=== PATIENT | female | born 1955 | race Caucasian/White ===

== ENCOUNTER → 2018-08-12 14:58 | Outpatient (CLI) | payer BC, SELFPAY ==
--- NOTE | 2018-08-12 15:02 | BI_ITS ---
MAMMOGRAPHY - BILATERAL SCREENING REASON FOR EXAM: Female, 62 years old. Routine annual screening examination. PERTINENT HISTORY: Non-contributory. TECHNIQUE: Digital bilateral breast rita (3D mammographic acquisition) in the CC and MLO projections. 2-D mediolateral oblique (MLO) and craniocaudad (CC) views of both breasts were obtained. CAD: Full Field Digital Mammography with Computer Added Detection was performed. COMPARISON: Comparison is made with prior examination dated May 14, 2017. FINDINGS: Breast Composition: There are scattered areas of fibroglandular density. There are no dominant masses or suspicious calcifications. Since prior study, the patient underwent a biopsy of a tiny nodule in the deep inferior medial portion of the left breast. A tissue clip marker is seen at that site. No other significant abnormalities are identified. There has been no significant change since the prior study. BI/SCREENING MAMM (CAD), BILAT IMPRESSION: Stable bilateral screening mammogram. Yearly follow-up mammogram recommended. (A) ASSESSMENT CATEGORY: BIRADS Category 2: Benign. A letter regarding these results will be sent to the patient by the facility within 30 days. Approximately 10% of breast cancers are not detected by mammography. A normal mammogram should not delay biopsy of a clinically suspicious abnormality. [id number] Electronically Signed: Real Ramesh MD at 16:02 EST Tel [phone], Service support ,
== END ==
PROVIDERS: Family Provider Family Medicine; PCP Family Medicine; Visit Provider Surgery
DX: Z12.31 Encounter for screening mammogram for malignant neoplasm of breast (principal)
CPT/HCPCS: 77063; 77067

== ENCOUNTER → 2020-05-22 13:43 | Outpatient (CLI) | payer MEDICARE, SELFPAY ==
[2018-08-26 13:14] VITALS: BMI 27.6
--- NOTE | 2020-05-22 13:48 | BI_ITS ---
MAMMOGRAPHY - BILATERAL SCREENING 3-D TOMOSYNTHESIS REASON FOR EXAM: Female, 64 years old. Routine screening PERTINENT HISTORY: NO FM HX , LT U/S BX DONE 06-26-17, -- TINY SKIN TAGS BILAT IMF AREA NOT MARKED. TECHNIQUE: 2-D mammograms and 3-D Tomosynthesis of the breast (s) were performed. CAD was performed. COMPARISON: 2018 FINDINGS: The breast composition is composed of scattered fibroglandular density. Scattered benign calcifications are seen. No dense spiculated masses or suspicious microcalcifications are identified. No architectural distortion is identified. There is no skin thickening or retraction. There has been no significant change since the prior study. BI/SCREEN MAMM (CAD) W/AZUL BILAT IMPRESSION: No mammographic signs of malignancy. Routine yearly mammograms recommended. ASSESSMENT CATEGORY: BIRADS Category 2: Benign. A letter regarding these results will be sent to the patient by the facility within 30 days. FOLLOW UP RECOMMENDATION: Yearly follow up mammogram recommended. (A) Approximately 10% of breast cancers are not detected by mammography. A normal mammogram should not delay biopsy of a clinically suspicious abnormality. Electronically Signed: Jose Rafael Stuart MD at 15:20 EDT , Service support ,
== END ==
PROVIDERS: Referring Provider Family Medicine
DX: Z12.31 Encounter for screening mammogram for malignant neoplasm of breast (principal)
CPT/HCPCS: 77063; 77067

== ENCOUNTER 2020-12-12 15:06 | Outpatient (RCR) | payer MEDICARE, SELFPAY ==
[2018-08-26 13:14] VITALS: BMI 27.6
[2020-12-12] MEDS: COVID-19 VACC, MRNA(PFIZER)/PF 30 MCG/0.3 ML SYRINGE IM (13:59)
[2021-01-02] MEDS: COVID-19 VACC, MRNA(PFIZER)/PF 30 MCG/0.3 ML SYRINGE IM (14:11)
== END 2021-03-13 23:59 ==
LOC: IMMUN 15:06
PROVIDERS: PCP Family Medicine; Visit Provider Family Medicine
DX: Z23 Encounter for immunization (principal)
CPT/HCPCS: 0001A; 0002A; 91300

== ENCOUNTER → 2021-07-13 13:22 | Outpatient (CLI) | payer MEDICARE, SELFPAY ==
--- NOTE | 2021-07-13 13:23 | BI_ITS ---
MAMMOGRAPHY - BILATERAL SCREENING 3-D TOMOSYNTHESIS REASON FOR EXAM: Female, 65 years old. SCREENING PERTINENT HISTORY: No significant family history. TECHNIQUE: 2-D mammograms and 3-D Tomosynthesis of the breast (s) were performed. CAD was performed. COMPARISON: 05/22/2020 FINDINGS: The breast composition is heterogeneously dense that can obscure small breast masses. Scattered benign calcifications are seen. No dense spiculated masses or suspicious microcalcifications are identified. No architectural distortion is identified. There is no skin thickening or retraction. There has been no significant change since the prior study. BI/SCRN MAMM (CAD)W/AZUL BILAT IMPRESSION: No mammographic signs of malignancy. Routine yearly mammograms recommended. ASSESSMENT CATEGORY: BIRADS Category 1: Negative. A letter regarding these results will be sent to the patient by the facility within 30 days. FOLLOW UP RECOMMENDATION: Yearly follow up mammogram recommended. (A) Approximately 10% of breast cancers are not detected by mammography. A normal mammogram should not delay biopsy of a clinically suspicious abnormality. Electronically Signed: Jessee Dunlap MD at 15:43 EDT Tel , Service support ,
== END ==
PROVIDERS: PCP Family Medicine; Referring Provider Family Medicine; Visit Provider Family Medicine
DX: Z12.31 Encounter for screening mammogram for malignant neoplasm of breast (principal); R92.8 Other abnormal and inconclusive findings on diagnostic imaging of breast
CPT/HCPCS: 77063; 77067

== ENCOUNTER → 2022-01-25 | Outpatient (CLI) | payer MEDICARE, SELFPAY | END | disposition home or self-care (01) | LOC: LABSPEC 10:22 | PROVIDERS: PCP Family Medicine; Referring Provider Dermatology; Visit Provider Dermatology | DX: B35.1 Tinea unguium (principal); R20.2 Paresthesia of skin; L60.3 Nail dystrophy; L82.0 Inflamed seborrheic keratosis; L53.8 Other specified erythematous conditions; D22.5 Melanocytic nevi of trunk; D18.01 Hemangioma of skin and subcutaneous tissue; L57.8 Other skin changes due to chronic exposure to nonionizing radiation; Z71.89 Other specified counseling | CPT/HCPCS: 87101 ==

== ENCOUNTER → 2022-08-08 | Outpatient (CLI) | payer MEDICARE, SELFPAY ==
--- NOTE | 2022-08-08 14:47 | BI_ITS ---
MAMMOGRAPHY - BILATERAL SCREENING REASON FOR EXAM: Female, 66 years old. Routine annual screening examination. PERTINENT HISTORY: Non-contributory. History of prior left ultrasound-guided breast biopsy. TECHNIQUE: Digital bilateral breast azul (3D mammographic acquisition) in the CC and MLO projections. 2-D mediolateral oblique (MLO) and craniocaudad (CC) views of both breasts were obtained. CAD: Full Field Digital Mammography with Computer Added Detection was performed. COMPARISON: Comparison is made with prior study dated 07/13/2021 and 05/22/2020. FINDINGS: Breast Composition: The breasts are heterogeneously dense, which may obscure small masses. There are no dominant masses or suspicious calcifications. A tissue clip marker is seen in the deep mid medial aspect of the left breast. No other significant abnormalities are identified. There has been no significant change since the prior study. BI/SCRN MAMM (CAD)W/AZUL BILAT IMPRESSION: Stable bilateral screening mammogram. Yearly follow-up mammogram recommended. (A) ASSESSMENT CATEGORY: BIRADS Category 2: Benign. A letter regarding these results will be sent to the patient by the facility within 30 days. Approximately 10% of breast cancers are not detected by mammography. A normal mammogram should not delay biopsy of a clinically suspicious abnormality. [id number] Electronically Signed: Real Ramesh MD at 15:33 EDT ,
== END | disposition home or self-care (01) ==
LOC: OPBI 14:45
PROVIDERS: PCP Family Medicine; Visit Provider Family Medicine
DX: Z12.31 Encounter for screening mammogram for malignant neoplasm of breast (principal)
CPT/HCPCS: 77063; 77067

== ENCOUNTER → 2023-08-11 | Outpatient (CLI) | payer MEDICARE, SELFPAY ==
--- NOTE | 2023-08-11 12:15 | BI_ITS ---
MAMMOGRAPHY - BILATERAL SCREENING REASON FOR EXAM: Female, 67 years old. Routine annual screening examination. PERTINENT HISTORY: Non-contributory. Prior ultrasound-guided left breast biopsy. TECHNIQUE: Digital bilateral breast azul (3D mammographic acquisition) in the CC and MLO projections. 2-D mediolateral oblique (MLO) and craniocaudad (CC) views of both breasts were obtained. CAD: Full Field Digital Mammography with Computer Added Detection was performed. COMPARISON: Comparison is made with prior study dated August 08, 2022 and July 13, 2021. FINDINGS: Breast Composition: The breasts are heterogeneously dense, which may obscure small masses. There are no dominant masses or suspicious calcifications. A tissue clip marker is once again seen in the deep slightly inferior medial aspect of the left breast. No other significant abnormalities are identified. There has been no significant change since the prior study. BI/SCRN MAMM (CAD)W/AZUL BILAT IMPRESSION: Stable bilateral screening mammogram. Yearly follow-up mammogram recommended. (A) ASSESSMENT CATEGORY: BIRADS Category 2: Benign. A letter regarding these results will be sent to the patient by the facility within 30 days. Approximately 10% of breast cancers are not detected by mammography. A normal mammogram should not delay biopsy of a clinically suspicious abnormality. [id number] Electronically Signed: Real Ramesh MD at 13:33 EST ,
== END | disposition home or self-care (01) ==
LOC: OPBI 12:11
PROVIDERS: PCP Family Medicine; Referring Provider Family Medicine; Visit Provider Family Medicine
DX: Z12.31 Encounter for screening mammogram for malignant neoplasm of breast (principal)
CPT/HCPCS: 77063; 77067

== ENCOUNTER → 2023-10-13 | Outpatient (CLI) | payer MEDICARE, SELFPAY ==
--- OUTSIDE RECORDS SUMMARY | 2023-10-13 07:11 | XMS RPT_ITS | CCD ---
Author Name Unknown Address [id number] [place] [address] Organization [facility] Care Team Providers Care Customer Equipment Engineer Name Role Phone Piero MCKEON, Allan Abbott Unavailable [phone] Idalia DO, Jah Javier Primary Care Provid er Idalia DO, [place] Javier Primary Care Provid er Idalia DO, [place] Javier Primary Care Provid er Idalia DO, Jah Javier Primary Care Provid er Idalia DO, [place] Javier Primary Care Provid er IDALIA, JAH JAVIER Attending Unavai lable IDALIA, JAH JAVIER Primary Care Unavai lable IDALIA, DOUDS JAVIER Attending Unavai lable IDALIA, JAH JAVIER Primary Care Unavai lable IDALIA, JAH JAVIER Primary Care Unavai lable IDALIA, JAH JAVIER Attending Unavai lable IDALIA, JAH JAVIER Primary Care Unavai lable IDALIA, JAH JAVIER Referring Unavai lable IDALIA, JAH JAVIER Primary Care Unavai lable IDALIA, JAH JAVIER Referring Unavai lable IDALIA, JAH JAVIER Primary Care Unavai lable IDALIA, JAH JAVIER Referring Unavai lable IDALIA, JAH JAVIER Primary Care Unavai lable IDALIA, JAH JAVIER Referring Unavai lable Allergies Allergy Classification Reported Allergen(s) Allergy Type Date of Onset Reaction(s) Facility (5 sources) azithromycin drug allergy 7 [facility] Work Phone: (5 sources) sulfamethoxazole / trimethoprim drug allergy 7 [facility] Work Phone: (12 sources) Azithromycin; Translations: [AZITHROMYCIN] Drug Allergy 7 [facility] (12 sources) Sulfonamides (Antibiotic); Translations: [SULFA (SULFONAMIDE ANTIBIOTICS)] Drug Allergy 7 [facility] Medications Current Medications Medication Drug Class(es) Dates Sig (Normalized) Sig (Original) amLODIPine 5 mg oral tablet (9 sources) Dihydropyridine Calcium Channel Hermila Start: 07-29-2023 End: 01-25-2024 take 1 tablet by mouth once daily amLODIPine (NORVASC) 5 mg tablet Indications: Essential (primary) hypertension Take 1 tablet by mouth once daily. 90 tablet 1 07/29/2023 01/25/2024 Active Completed/Discontinued Medications Medication Drug Class(es) Dates Sig (Normalized) Sig (Original) ESTRADIOL TABS (5 sources) Estrogen Start: 05-28-2017 VAGIFEM TABS ESTRADIOL TABS [id number] Allan Harry MD Problems Active Problems Problem Classification Problem Date Documented Date Episodic/Chronic Deficiency and other anemia (1 source) Anemia; Translations: [Anemia, unspecified] 08-18-2023 Episodic Deficiency and other anemia (2 sources) Anemia, unspecified; Translations: [Anemia, unspecified type] Onset: 08-18-2023 Episodic Disorders of lipid metabolism (13 sources) Mixed hyperlipidemia; Translations: [Mixed hyperlipidemia] Onset: 09-22-2020 09-22-2020 Chronic Esophageal disorders (15 sources) Gastroesophageal reflux disease; Translations: [Gastroesophageal reflux disease without esophagitis] Onset: 05-28-2017 05-28-2017 Chronic Essential hypertension (20 sources) Hypertensive disorder; Translations: [Essential hypertension] Onset: 05-28-2017 05-28-2017 Chronic Fluid and electrolyte disorders (1 source) Hypokalemia; Translations: [Hypokalemia] Onset: 08-11-2023 Episodic Heart valve disorders (2 sources) Aortic valve stenosis; Translations: [Nonrheumatic aortic (valve) stenosis] Onset: 08-18-2023 08-18-2023 Chronic Heart valve disorders (6 sources) Heart murmur; Translations: [Cardiac murmur, unspecified] Onset: 07-29-2023 07-30-2023 Episodic Nonmalignant breast conditions (9 sources) Fibrocystic disease of breast; Translations: [Diffuse cystic mastopathy of unspecified breast] Onset: 07-07-2017 07-07-2017 Chronic Osteoarthritis (12 sources) Degenerative joint disease involving multiple joints; Translations: [Polyosteoarthritis, unspecified] Onset: 09-22-2020 09-22-2020 Chronic Other nutritional; endocrine; and metabolic disorders (1 source) Overweight in adulthood with body mass index of 25 or more but less than 30; Translations: [Overweight] 08-18-2023 Episodic Other nutritional; endocrine; and metabolic disorders (2 sources) Overweight; Translations: [Overweight with body mass index (BMI) of 27 to 27.9 in adult] Onset: 07-29-2023 Episodic Other nutritional; endocrine; and metabolic disorders (1 source) Body mass index (BMI) 27.0-27.9, adult; Translations: [Overweight with body mass index (BMI) of 27 to 27.9 in adult] Onset: 08-18-2023 Episodic Other nutritional; endocrine; and metabolic disorders (1 source) Body mass index (BMI) 26.0-26.9, adult; Translations: [Overweight with body mass index (BMI) of 26 to 26.9 in adult] Onset: 07-29-2023 Episodic Other screening for suspected conditions (not mental disorders or infectious disease) (17 sources) Patient encounter status; Translations: [Encounter for screening for lipoid disorders] Onset: 09-22-2020 12-11-2021 Episodic Other upper respiratory disease (1 source) Allergic rhinitis due to pollen; Translations: [Seasonal allergic rhinitis due to pollen] Onset: 07-29-2023 Chronic Past or Other Problems Problem Classification Problem Date Documented Da te Episodic/Chronic Deficiency and other anemia (10 sources) Iron deficiency anemia; Translations: [Iron deficiency anemia, unspecified] Onset: 11-25-2006 11-25-2006 Episodic E Codes: Fall (10 sources) Unspecified fall due to ice and snow, initial encounter; Translations: [Fall from other slipping, tripping, or stumbling] Onset: 12-11-2021 12-11-2021 Episodic Gastritis and duodenitis (10 sources) Acute gastritis; Translations: [Acute gastritis without bleeding] Onset: 11-25-2006 11-25-2006 Episodic Hemorrhoids (10 sources) Internal hemorrhoids; Translations: [Other hemorrhoids] Onset: 11-25-2006 11-25-2006 Episodic Immunizations and screening for infectious disease (10 sources) Viral screening status; Translations: [Encounter for screening for other viral diseases] Onset: 12-11-2021 12-11-2021 Episodic Joint disorders and dislocations; trauma-related (10 sources) Subluxation of joint of lower limb; Translations: [Unspecified subluxation of right patella, subsequent encounter] Onset: 06-28-2021 06-28-2021 Episodic Other bone disease and musculoskeletal deformities (10 sources) Senile osteopenia; Translations: [Other specified disorders of bone density and structure, unspecified site] Onset: 09-22-2020 09-22-2020 Episodic Other lower respiratory disease (10 sources) Rib pain; Translations: [Pleurodynia] Onset: 12-11-2021 12-11-2021 Episodic Other screening for suspected conditions (not mental disorders or infectious disease) (5 sources) Mammography abnormal; Translations: [Other abnormal and inconclusive findings on diagnostic imaging of breast] Onset: 05-28-2017 06-05-2017 Episodic Residual codes; unclassified (2 sources) Other specified health status; Translations: [Other drug allergy] Onset: 01-27-2023 Episodic Results Test Name Value Interpretation Reference Range Facil ity Vital Signs Date Time Vital Sign Value Performing Clinician Facility 08-18-2023 15:15-0500 Body height 152.4 cm [place] Idalia [facility] Work Phone: [facility] 08-18-2023 15:15-0500 Body temperature 97.5 [degF] [place] Idalia [facility] Work Phone: [facility] 08-18-2023 15:15-0500 Body weight 63.05 kg [facility] Work Phone: [facility] 08-18-2023 15:15-0500 Diastolic blood pressure 72 mm[Hg] [facility] Work Phone: [facility] 08-18-2023 15:15-0500 Heart rate 73 /min Jah Idalia DO Work Phone: [facility] 08-18-2023 15:15-0500 SaO2% (BldA) [Mass fraction] 100 % [place] Idalia DO Work Phone: [facility] 08-18-2023 15:15-0500 Systolic blood pressure 132 mm[Hg] [place] Idalia DO Work Phone: [facility] 01-27-2023 13:04-0400 Body height 152.4 cm [place] Idalia DO Work Phone: [facility] 01-27-2023 13:04-0400 Body temperature 98.4 [degF] Jah Idalia DO Work Phone: [facility] 01-27-2023 13:04-0400 Body weight 65.32 kg Jah Idalia DO Work Phone: [facility] 01-27-2023 13:04-0400 Diastolic blood pressure 84 mm[Hg] [place] Idalia DO Work Phone: [facility] 01-27-2023 13:04-0400 Heart rate 77 /min Jah Idalia DO Work Phone: [facility] 01-27-2023 13:04-0400 SaO2% (BldA) [Mass fraction] 99 % [place] Idalia DO Work Phone: [facility] 01-27-2023 13:04-0400 Systolic blood pressure 120 mm[Hg] [place] Idalia DO Work Phone: [facility] 07-29-2022 14:03-0400 Diastolic blood pressure 70 mm[Hg] Jah Idalia DO Work Phone: [facility] 07-29-2022 14:03-0400 Systolic blood pressure 130 mm[Hg] Jah Idalia DO Work Phone: [facility] 07-29-2022 13:34-0400 Body height 152.4 cm [place] Idalia DO Work Phone: [facility] 07-29-2022 13:34-0400 Body temperature 97.59 [degF] Jah Chorio DO Work Phone: [facility] 07-29-2022 13:34-0400 Body weight 64.41 kg Jah Chorio DO Work Phone: [facility] 07-29-2022 13:34-0400 Heart rate 93 /min [place] Ch[place] DO Work Phone: [facility] 07-29-2022 13:34-0400 SaO2% (BldA) [Mass fraction] 99 % Jah Chorio DO Work Phone: [facility] 05-28-2017 11:06-0400 BMI (Body Mass Index) 29.09 kg/m2 Allan Harry MD [facility] Work Phone: 05-28-2017 11:06-0400 BP Diastolic 80 mm[Hg] Allan Harry MD [facility] Work Phone: 05-28-2017 11:06-0400 BP Systolic 144 mm[Hg] Allan Harry MD [facility] Work Phone: 05-28-2017 11:06-0400 Height 154.94 cm Allan Harry MD [facility] Work Phone: 05-28-2017 11:06-0400 Pulse (Heart Rate) 62 /min Allan Harry MD [facility] Work Phone: 05-28-2017 11:06-0400 Respiratory Rate 18 /min Allan Harry MD [facility] Work Phone: 05-28-2017 11:06-0400 Weight 69.85 kg Allan Harry MD [facility] Work Phone: Encounters Encounter Date Encounter Type Care Provider Facility Start: 09-08-2023 End: 09-09-2023 ambulatory DOUDS JAVIER IDALIA Facility:[facility] Start: 08-18-2023 End: 08-18-2023 ambulatory [facility] Facility:[facility] Start: 08-18-2023 End: 08-18-2023 Patient encounter procedure Jah Ryan DO Work Phone: [facility] [place] Procedures Date Procedure Procedure Detail Performing Clinician Start: 08-01-2023 Lipid 1996 panel - S sara or Plasma Ag Card Work Phone: Start: 06-25-2021 Colonoscopy Jah Alicea liverio DO Work Phone: Start: 03-07-2021 Adult depression scr eening assessment Jah Ryan DO Work Phone: Start: 05-22-2020 Mammography [place] O liverio DO Work Phone: Plan of Treatment Date Care Activity Detail Author Start: 06-25-2031 Colonoscopy COLONOSCOPY [facility] Start: 06-25-2031 COLORECTAL CANCER SCREENING COLORECTAL CANCER SCREENING [facility] Start: 09-22-2030 Urine microalbumin profile [facility] Start: 08-01-2028 Lipid 1996 panel - Serum or Plasma Lipid Screening [facility] Start: 12-13-2026 LIPID SCREEN LIPID SCREEN [facility] Start: 08-11-2026 Diabetes Screening Diabetes Screening [facility] Start: 08-01-2026 Diabetes Screening Diabetes Screening [facility] Start: 12-13-2024 DIABETES SCREEN DIABETES SCREEN [facility] Start: 08-18-2024 Annual PCP Team Chronic Disease Visit Annual PCP Team Chronic Disease Visit [facility] Start: 07-29-2024 Annual PCP Team Chronic Disease Visit Annual PCP Team Chronic Disease Visit [facility] Start: 01-28-2024 ANNUAL PCP TEAM CHRONIC DISEASE VISIT ANNUAL PCP TEAM CHRONIC DISEASE VISIT [facility] Start: 08-18-2023 End: 11-17-2023 Cobalamin (Vitamin B12) [Mass/volume] in Serum or Plasma VITAMIN B12 BLOOD Lab Routine Anemia, unspecified type Expected: 08/18/2023, Expires: 11/17/2023 [facility] Work Phone: Immunizations Immunization Date Immunization Notes Care Provider Fa [facility] 09-22-2020 pneumococcal polysaccharide vaccine, 23 valent Jah Ryan DO Work Phone: [facility] 09-22-2020 tetanus toxoid, redu juan jose diphtheria toxoid, and acellular pertussis vaccine, adsorbed [facility] DO Work Phone: [facility] 08-31-2018 hepatitis A and hepa titis B vaccine [facility] DO Work Phone: [facility] 02-09-2018 hepatitis A and hepa titis B vaccine [facility] DO Work Phone: [facility] 01-12-2018 hepatitis A and hepa titis B vaccine [facility] DO Work Phone: [facility] Payers Date Payer Category Payer Unknown [id number] 2019 Medicare MMO MEDICARE MMO MEDADVANTAGE O [id number] 2019-Present [phone] [address] [place] [address] [facility] [id number] 2019 Medicare [id number] Social History Date Type Detail Facility Start: 09-15-2020 End: 07-29-2022 Tobacco smoking status NHIS Never smoked tobacco [facility] Start: 12-11-2021 End: 08-18-2023 Alcohol intake Current non-drinker of alcohol (finding) [facility] Start: 1955 Sex Assigned At Not on file [facility] Start: 09-15-2020 End: 07-29-2022 Tobacco use and exposure Smokeless tobacco non-user [facility] Start: 07-19-2022 End: 07-29-2022 Exposure to SARS-CoV-2 (event) Not sure [facility] Start: 01-27-2023 End: 07-29-2023 History of Social function [facility] Start: 01-27-2023 End: 07-29-2023 Tobacco use panel [facility] Adult Depression Scr eening Assessment 0 [facility] Clinical Notes 06-25-2021 to 08-18-2023 Jah Ryan, DO - 08/18/2023 3:19 PM ESTTelephone Encounter - Alana Tavarez - 08/06/2023 4:15 PM EDTTelephone Encounter - Thais Liang LPN - 04/14/2023 1:45 PM EDT Note Date & Type Note Facility 08-18-2023 Note HNO ID: [id number] Author: Jah Ryan DO Service: ? Author Type: Physician Type: Progress Notes Filed: 08/20/2023 7:15 PM Note Text: [facility] [place] Jah Ryan DO [address] [place] [address] Date of Evaluation: 08/18/2023 Patient Name: Carolann Daily : 1955 Chief Complaint: Patient presents with: Wellness: Yearly wellness Results: Had recent blood work. Nursing Intake: There are no exam notes on file for this visit. Subjective Ms. Daily is a 67 year old female who presents with the following complaint(s): The history is provided by the patient. No rf design engineer was used. Hypertension This is a chronic problem. The current episode started more than 1 year ago. The problem is controlled. Pertinent negatives include no chest pain, headaches, palpitations or shortness of breath. Review of Systems Constitutional: Negative for fatigue and unexpected weight change. HENT: Negative for nosebleeds. Eyes: Negative for redness and visual disturbance. Respiratory: Negative for apnea, cough and shortness of breath. Cardiovascular: Negative for chest pain, palpitations and leg swelling. Genitourinary: Negative for hematuria. Neurological: Negative for dizziness, weakness, light-headedness, numbness and headaches. Hematological: Does not bruise/bleed easily. Psychiatric/Behavioral: The patient is not nervous/anxious. PAST MEDICAL HISTORY Diagnosis Date Acute gastritis without mention of hemorrhage Allergic rhinitis due to pollen Aortic valve stenosis Arthritis Dizziness Esophageal reflux Essential (primary) hypertension Fatigue Gastro-esophageal reflux disease with esophagitis Gastroesophageal reflux disease without esophagitis Greater trochanteric pain syndrome Internal hemorrhoids without mention of complication Iron deficiency anemia, unspecified Localized, primary osteoarthritis Low back pain Mixed hyperlipidemia Statin Intolerance Overweight PMH - PAST MEDICAL HISTORY OF tennis elbow PMH - PAST MEDICAL HISTORY OF bp can run low at times PONV (postoperative nausea and vomiting) Postmenopausal atrophic vaginitis Urinary tract infectious disease Vitamin D deficiency PAST SURGICAL HISTORY Procedure Laterality Date CARPAL TUNNEL Bilateral COLONOSCOPY FLX DX W/COLLJ SPEC WHEN PFRMD 11/25/2006 COLONOSCOPY FLX DX W/COLLJ SPEC WHEN PFRMD 06/25/2021 EGD TRANSORAL BIOPSY SINGLE/MULTIPLE 11/25/2006 ESOPHAGOGASTRODUODENOSCOPY TRANSORAL DIAGNOSTIC 10/21/2003 EGD ESOPHAGOGASTRODUODENOSCOPY TRANSORAL DIAGNOSTIC 06/25/2021 PAST SURGICAL HISTORY OF 07/12/1992 partial hysterectomy due to fibroids TONSILLECTOMY PRIMARY/SECONDARY Tonsillectomy VAGINAL HYSTERECTOMY FAMILY HISTORY Problem Relation Age of Onset Diabetes Mother Cancer Father Arthritis Sister Diabetes Maternal Grandfather Social History Tobacco Use Smoking status: Never Smokeless tobacco: Never Vaping Use Vaping Use: Never used Substance Use Topics Alcohol use: No Drug use: Never Current Outpatient Medications Medication Sig amLODIPine (NORVASC) 5 mg tablet Take 1 tablet by mouth once daily. lisinopril (ZESTRIL) 40 mg tablet Take 1 tablet by mouth once daily. omeprazole (PRILOSEC) 40 mg capsule Take 1 capsule by mouth once daily. fluticasone (FLONASE) 50 mcg/actuation nasal spray Use 2 Sprays in each nostril once daily. naproxen (NAPROSYN) 500 mg tablet Take 1 tablet by mouth two times a day with meals. RED YEAST RICE ORAL Take by mouth. MULTIVITAMIN ORAL Take by mouth. ubidecarenone/vitamin E mixed (COQ10 SG 100 ORAL) Take by mouth once daily. lansoprazole (PREVACID) 30 mg capsule Take 1 capsule by mouth once daily. (Patient not taking: Reported on 07/29/2023) No current facility-administered medications for this visit. I have confirmed and edited as necessary the past medical, family and social histories, HPI, and ROS obtained by others. Objective BP 132/72 Pulse 73 Temp 97.5 Ht 5' 0 (1.52m) Wt 139 lb (63.1kg) SpO2 100% BMI 27.15 kg/(m2). Physical Exam Vitals and nursing note reviewed. Constitutional: General: She is not in acute distress. Appearance: Normal appearance. She is well-developed. She is not ill-appearing. HENT: Head: Normocephalic. Right Ear: Tympanic membrane, ear canal and external ear normal. There is no impacted cerumen. Left Ear: Tympanic membrane, ear canal and external ear normal. There is no impacted cerumen. Nose: Nose normal. Mouth/Throat: Mouth: Mucous membranes are moist. Pharynx: Oropharynx is clear. Uvula midline. No oropharyngeal exudate or posterior oropharyngeal erythema. Eyes: General: Lids are normal. Vision grossly intact. Gaze aligned appropriately. No scleral icterus. Right eye: No discharge. Left eye: No discharg (more content not included)... [facility] 08-18-2023 History of Presen t illness Narrative Images from the original note were not included. [facility] [address] [place] [address] Date of Evaluation: 08/18/2023 Patient Name: Carolann Daily : 1955 Chief Complaint: Patient presents with: Wellness: Yearly wellness Results: Had recent blood work. Nursing Intake: There are no exam notes on file for this visit. Subjective Ms. Daliy is a 67 year old female who presents with the following complaint(s): The history is provided by the patient. No rf design engineer was used. Hypertension This is a chronic problem. The current episode started more than 1 year ago. The problem is controlled. Pertinent negatives include no chest pain, headaches, palpitations or shortness of breath. Review of Systems Constitutional: Negative for fatigue and unexpected weight change. HENT: Negative for nosebleeds. Eyes: Negative for redness and visual disturbance. Respiratory: Negative for apnea, cough and shortness of breath. Cardiovascular: Negative for chest pain, palpitations and leg swelling. Genitourinary: Negative for hematuria. Neurological: Negative for dizziness, weakness, light-headedness, numbness and headaches. Hematological: Does not bruise/bleed easily. Psychiatric/Behavioral: The patient is not nervous/anxious. PAST MEDICAL HISTORY Diagnosis Date Acute gastritis without mention of hemorrhage Allergic rhinitis due to pollen Aortic valve stenosis Arthritis Dizziness Esophageal reflux Essential (primary) hypertension Fatigue Gastro-esophageal reflux disease with esophagitis Gastroesophageal reflux disease without esophagitis Greater trochanteric pain syndrome Internal hemorrhoids without mention of complication Iron deficiency anemia, unspecified Localized, primary osteoarthritis Low back pain Mixed hyperlipidemia Statin Intolerance Overweight PMH - PAST MEDICAL HISTORY OF tennis elbow PMH - PAST MEDICAL HISTORY OF bp can run low at times PONV (postoperative nausea and vomiting) Postmenopausal atrophic vaginitis Urinary tract infectious disease Vitamin D deficiency PAST SURGICAL HISTORY Procedure Laterality Date CARPAL TUNNEL Bilateral COLONOSCOPY FLX DX W/COLLJ SPEC WHEN PFRMD 11/25/2006 COLONOSCOPY FLX DX W/COLLJ SPEC WHEN PFRMD 06/25/2021 EGD TRANSORAL BIOPSY SINGLE/MULTIPLE 11/25/2006 ESOPHAGOGASTRODUODENOSCOPY TRANSORAL DIAGNOSTIC 10/21/2003 EGD ESOPHAGOGASTRODUODENOSCOPY TRANSORAL DIAGNOSTIC 06/25/2021 PAST SURGICAL HISTORY OF 07/12/1992 partial hysterectomy due to fibroids TONSILLECTOMY PRIMARY/SECONDARY <AGE 12 01/01/1979 Tonsillectomy VAGINAL HYSTERECTOMY FAMILY HISTORY Problem Relation Age of Onset Diabetes Mother Cancer Father Arthritis Sister Diabetes Maternal Grandfather Social History Tobacco Use Smoking status: Never Smokeless tobacco: Never Vaping Use Vaping Use: Never used Substance Use Topics Alcohol use: No Drug use: Never Current Outpatient Medications Medication Sig amLODIPine (NORVASC) 5 mg tablet Take 1 tablet by mouth once daily. lisinopril (ZESTRIL) 40 mg tablet Take 1 tablet by mouth once daily. omeprazole (PRILOSEC) 40 mg capsule Take 1 capsule by mouth once daily. fluticasone (FLONASE) 50 mcg/actuation nasal spray Use 2 Sprays in each nostril once daily. naproxen (NAPROSYN) 500 mg tablet Take 1 tablet by mouth two times a day with meals. RED YEAST RICE ORAL Take by mouth. MULTIVITAMIN ORAL Take by mouth. ubidecarenone/vitamin E mixed (COQ10 SG 100 ORAL) Take by mouth once daily. lansoprazole (PREVACID) 30 mg capsule Take 1 capsule by mouth once daily. (Patient not taking: Reported on 07/29/2023) No current facility-administered medications for this visit. I have confirmed and edited as necessary the past medical, family and social histories, HPI, and ROS obtained by others. Objective BP 132/72 Pulse 73 Temp 97.5 Ht 5' 0 (1.52m) Wt 139 lb (63.1kg) SpO2 100% BMI 27.15 kg/(m^2). Physical Exam Vitals and nursing note reviewed. Constitutional: General: She is not in acute distress. Appearance: Normal appearance. She is well-developed. She is not ill-appearing. HENT: Head: Normocephalic. Right Ear: Tympanic membrane, ear canal and external ear normal. There is no impacted cerumen. Left Ear: Tympanic membrane, ear canal and external ear normal. There is no impacted cerumen. Nose: Nose normal. Mouth/Throat: Mouth: Mucous membranes are moist. Pharynx: Oropharynx is clear. Uvula midline. No oropharyngeal exudate or posterior oropharyngeal erythema. Eyes: General: Lids are normal. Vision grossly intact. Gaze aligned appropriately. No scleral icterus. Right eye: No discharge. Left eye: No discharge. Extraocular Movements: Extraocular movements intact. Conjunctiva/sclera: Conjunctivae normal. Pupils: Pupils are equal, round, and reactive to light. Neck: Thyroid: No thyroid mass, thyromegaly or thyroid tenderness. Vascular: No carotid bruit. Trachea: Trachea and phonation normal. Cardiovascular: Rate and Rhythm: Normal rate and regular rhythm. Pulses: Normal pulses. Heart sounds: Murmur heard. Pulmonary: Effort: Pulmonary effort is normal. Breath sounds: Normal breath sounds. Abdominal: General: Abdomen is flat. Bowel sounds are normal. Palpations: Abdomen is soft. Musculoskeletal: General: Normal range of motion. Right shoulder: Normal. Left shoulder: Normal. Cervical back: Normal, full passive range of motion without pain and neck supple. No tenderness. No spinous process tenderness. Thoracic back: Normal. Lumbar back: Normal. Right knee: Normal. Left knee: Normal. Right lower leg: No edema. Left lower leg: No edema. Lymphadenopathy: Cervical: No cervical adenopathy. Skin: General: Skin is warm and dry. Neurological: General: No focal deficit present. Mental Status: She is alert and oriented to person, place, and time. Mental status is at baseline. Sensory: Sensation is intact. Motor: Motor function is intact. Psychiatric: Attention and Perception: Attention and perception normal. Mood and Affect: Mood normal. Speech: Speech normal. Behavior: Behavior normal. Thought Content: Thought content normal. Judgment: Judgment normal. Data Reviewed: Most recent labs and imaging results. ASSESSMENT/PLAN: 1. Essential (primary) hypertension - ICD9: 401.9, ICD10: I10 (primary diagnosis) - Controlled - Continue current medications - Recommend home blood pressure monitoring, to bring results to next visit - Encouraged sodium restriction, DASH or Mediterranean diet - Recommend regular aerobic exercise 2. Anemia, unspecified type - ICD9: 285.9, ICD10: D64.9 - Check B12 level. - VITAMIN B12 BLOOD 3. Aortic valve stenosis, etiology of cardiac valve disease unspecified - ICD9: 424.1, ICD10: I35.0 - Reviewed recent echo, upcoming appointment with cardiology. 4. Overweight with body mass index (BMI) of 27 to 27.9 in adult - ICD9: 278.02, V85.23, ICD10: E66.3, Z68.27 5. Heart murmur - ICD9: 785.2, ICD10: R01.1 Return in about 6 months (around 02/16/2024). Jah Ryan DO Attestation: Scribe Statement: I Danyelle Pepe am scribing for, and in the presence of, Physician Statement: I, Jah Ryan DO, personally performed the services described in the documentation, as scribed by Danyelle Pepe in my presence, and it is both accurate and complete August 18, 2023 3:51 PM. Jah Ryan DO August 18, 2023 3:45 PM. documented in this encounter [facility] 08-06-2023 Miscellaneous Notes Formattin g of this note might be different from the original. LVM for pt reg her referral that we have receive form PCP Dr. Ryan reg. Aortic stenosis, moderate. Pt has been scheduled with Dr. Lyles on 08/22/23 at [facility] for 8:20a. Office number [phone] option 5 was left in case pt has any questions. Alana Tavarez August 06, 2023 4:16 PM documented in this encounter [facility] 07-29-2023 Note HNO ID: [id number] Author: Jah Ryan DO Service: ? Author Type: Physician Type: Progress Notes Filed: 07/30/2023 9:41 PM Note Text: [facility] [place] Jah Ryan DO [address] [place] [address] Date of Evaluation: 07/29/2023 Patient Name: Carolann Daily : 1955 Chief Complaint: Patient presents with: 6 Month Exam Hypertension Heartburn Nursing Intake: There are no exam notes on file for this visit. Subjective Ms. Daily is a 67 year old female who presents with the following complaint(s): The history is provided by the patient. No rf design engineer was used. Hypertension This is a chronic problem. The current episode started more than 1 year ago. Pertinent negatives include no chest pain or headaches. GERD She complains of heartburn. She reports no chest pain. This is a chronic problem. The current episode started more than 1 year ago. Pertinent negatives include no fatigue. Allergies This is a chronic problem. Pertinent negatives include no chest pain, fatigue, headaches or numbness. Review of Systems Constitutional: Negative for fatigue and unexpected weight change. Respiratory: Negative for apnea. Cardiovascular: Negative for chest pain and leg swelling. Gastrointestinal: Positive for heartburn. Genitourinary: Negative for hematuria. Neurological: Negative for light-headedness, numbness and headaches. Psychiatric/Behavioral: The patient is not nervous/anxious. PAST MEDICAL HISTORY Diagnosis Date Acute gastritis without mention of hemorrhage Allergic rhinitis due to pollen Arthritis Dizziness Esophageal reflux Essential (primary) hypertension Fatigue Gastro-esophageal reflux disease with esophagitis Gastroesophageal reflux disease without esophagitis Greater trochanteric pain syndrome Internal hemorrhoids without mention of complication Iron deficiency anemia, unspecified Localized, primary osteoarthritis Low back pain Mixed hyperlipidemia Statin Intolerance Overweight PMH - PAST MEDICAL HISTORY OF tennis elbow PMH - PAST MEDICAL HISTORY OF bp can run low at times PONV (postoperative nausea and vomiting) Postmenopausal atrophic vaginitis Urinary tract infectious disease Vitamin D deficiency PAST SURGICAL HISTORY Procedure Laterality Date CARPAL TUNNEL Bilateral COLONOSCOPY FLX DX W/COLLJ SPEC WHEN PFRMD 11/25/2006 COLONOSCOPY FLX DX W/COLLJ SPEC WHEN PFRMD 06/25/2021 EGD TRANSORAL BIOPSY SINGLE/MULTIPLE 11/25/2006 ESOPHAGOGASTRODUODENOSCOPY TRANSORAL DIAGNOSTIC 10/21/2003 EGD ESOPHAGOGASTRODUODENOSCOPY TRANSORAL DIAGNOSTIC 06/25/2021 PAST SURGICAL HISTORY OF 07/12/1992 partial hysterectomy due to fibroids TONSILLECTOMY PRIMARY/SECONDARY Tonsillectomy VAGINAL HYSTERECTOMY FAMILY HISTORY Problem Relation Age of Onset Diabetes Mother Cancer Father Arthritis Sister Diabetes Maternal Grandfather Social History Tobacco Use Smoking status: Never Smokeless tobacco: Never Vaping Use Vaping Use: Never used Substance Use Topics Alcohol use: No Drug use: Never Current Outpatient Medications Medication Sig RED YEAST RICE ORAL Take by mouth. MULTIVITAMIN ORAL Take by mouth. ubidecarenone/vitamin E mixed (COQ10 SG 100 ORAL) Take by mouth once daily. amLODIPine (NORVASC) 5 mg tablet Take 1 tablet by mouth once daily. lisinopril (ZESTRIL) 40 mg tablet Take 1 tablet by mouth once daily. omeprazole (PRILOSEC) 40 mg capsule Take 1 capsule by mouth once daily. fluticasone (FLONASE) 50 mcg/actuation nasal spray Use 2 Sprays in each nostril once daily. naproxen (NAPROSYN) 500 mg tablet Take 1 tablet by mouth two times a day with meals. lansoprazole (PREVACID) 30 mg capsule Take 1 capsule by mouth once daily. (Patient not taking: Reported on 07/29/2023) No current facility-administered medications for this visit. I have confirmed and edited as necessary the past medical, family and social histories, HPI, and ROS obtained by others. Objective BP 132/68 Pulse 88 Temp 98.1 Ht 5' 0 (1.52m) Wt 138 lb (62.6kg) SpO2 98% BMI 26.95 kg/(m2). Physical Exam Vitals and nursing note reviewed. Constitutional: General: She is not in acute distress. Appearance: Normal appearance. She is well-developed. She is not ill-appearing. HENT: Head: Normocephalic. Right Ear: Tympanic membrane, ear canal and external ear normal. There is no impacted cerumen. Left Ear: Tympanic membrane, ear canal and external ear normal. There is no impacted cerumen. Nose: Nose normal. Mouth/Throat: Mouth: Mucous membranes are moist. Pharynx: Oropharynx is clear. Uvula midline. No oropharyngeal exudate or posterior oropharyngeal erythema. Eyes: General: Lids are normal. Vision grossly intact. Gaze aligned appropriately. No scleral icterus. Right eye: (more content not included)... [facility] 04-14-2023 Miscellaneous Notes Formattin g of this note is different from the original. Pharmacy faxed requesting the following refill Refill(s) Requested: Requested Prescriptions Pending Prescriptions Disp Refills amLODIPine (NORVASC) 5 mg tablet [Pharmacy Med Name: amLODIPine Besylate 5 MG Oral Tablet] 90 tablet 0 Sig: Take 1 tablet by mouth once daily ALLERGIES Allergen Reactions Azithromycin Rash inflames mouth Other reaction(s): [facility] Sulfa (Sulfonamide * Rash inflames mouth Other reaction(s): [facility] (home) [phone] (cell) Last Office Visit Date: 01/27/2023 Last Distance Health Visit: Visit date not found Future Appointment: 07/29/2023 The patients preferred pharmacy has been captured for this encounter? yes Request is for script(s) to be escript to pharmacy. Thais Liang LPN documented in this encounter [facility] 01-28-2023 Miscellaneous Notes Formattin g of this note is different from the original. Pharmacy faxed requesting the following refill Refill(s) Requested: Requested Prescriptions Pending Prescriptions Disp Refills amLODIPine (NORVASC) 5 mg tablet [Pharmacy Med Name: amLODIPine Besylate 5 MG Oral Tablet] 90 tablet 0 Sig: Take 1 tablet by mouth once daily ALLERGIES Allergen Reactions Azithromycin Rash inflames mouth Other reaction(s): [facility] Sulfa (Sulfonamide * Rash inflames mouth Other reaction(s): [facility] (home) [phone] (cell) Last Office Visit Date: 01/27/2023 Last Distance Health Visit: Visit date not found Future Appointment: 07/29/2023 The patients preferred pharmacy has been captured for this encounter? yes Request is for script(s) to be escript to pharmacy. Thais Liang LPN documented in this encounter [facility] 01-27-2023 Note HNO ID: [id number] Author: Jah Ryan DO Service: ? Author Type: Physician Type: Progress Notes Filed: 02/05/2023 6:45 PM Note Text: [facility] [place] DO [address] [place] [address] Date of Evaluation: 01/27/2023 Patient Name: Carolann Daily : 1955 Chief Complaint: Patient presents with: Hypertension 6 Month Exam Heartburn Nursing Intake: There are no exam notes on file for this visit. Subjective Ms. Daily is a 67 year old female who presents with the following complaint(s): The history is provided by the patient. No rf design engineer was used. Hypertension This is a chronic problem. The current episode started more than 1 year ago. Pertinent negatives include no chest pain, headaches, palpitations or shortness of breath. Hypercholesterolemia This is a chronic problem. The current episode started more than 1 year ago. Pertinent negatives include no chest pain or shortness of breath. Musculoskeletal Problem This is a chronic problem. Associated symptoms include arthralgias. Pertinent negatives include no chest pain, coughing, fatigue, headaches, numbness or weakness. GERD She complains of heartburn. She reports no chest pain or no coughing. This is a chronic problem. The problem has been gradually worsening. Pertinent negatives include no fatigue. Review of Systems Constitutional: Negative for fatigue and unexpected weight change. HENT: Negative for nosebleeds. Eyes: Negative for redness and visual disturbance. Respiratory: Negative for apnea, cough and shortness of breath. Cardiovascular: Negative for chest pain, palpitations and leg swelling. Gastrointestinal: Positive for heartburn. Genitourinary: Negative for hematuria. Musculoskeletal: Positive for arthralgias. Neurological: Negative for dizziness, weakness, light-headedness, numbness and headaches. Hematological: Does not bruise/bleed easily. Psychiatric/Behavioral: The patient is not nervous/anxious. PAST MEDICAL HISTORY Diagnosis Date Acute gastritis without mention of hemorrhage Allergic rhinitis due to pollen Arthritis Dizziness Esophageal reflux Essential (primary) hypertension Fatigue Gastro-esophageal reflux disease with esophagitis Gastroesophageal reflux disease without esophagitis Greater trochanteric pain syndrome Internal hemorrhoids without mention of complication Iron deficiency anemia, unspecified Localized, primary osteoarthritis Low back pain Mixed hyperlipidemia Statin Intolerance Overweight PMH - PAST MEDICAL HISTORY OF tennis elbow PMH - PAST MEDICAL HISTORY OF bp can run low at times PONV (postoperative nausea and vomiting) Postmenopausal atrophic vaginitis Urinary tract infectious disease Vitamin D deficiency PAST SURGICAL HISTORY Procedure Laterality Date CARPAL TUNNEL Bilateral COLONOSCOPY FLX DX W/COLLJ SPEC WHEN PFRMD 11/25/2006 COLONOSCOPY FLX DX W/COLLJ SPEC WHEN PFRMD 06/25/2021 EGD TRANSORAL BIOPSY SINGLE/MULTIPLE 11/25/2006 ESOPHAGOGASTRODUODENOSCOPY TRANSORAL DIAGNOSTIC 10/21/2003 EGD ESOPHAGOGASTRODUODENOSCOPY TRANSORAL DIAGNOSTIC 06/25/2021 PAST SURGICAL HISTORY OF 07/12/1992 partial hysterectomy due to fibroids TONSILLECTOMY PRIMARY/SECONDARY Tonsillectomy VAGINAL HYSTERECTOMY FAMILY HISTORY Problem Relation Age of Onset Diabetes Mother Cancer Father Arthritis Sister Diabetes Maternal Grandfather Social History Tobacco Use Smoking status: Never Smokeless tobacco: Never Vaping Use Vaping Use: Never used Substance Use Topics Alcohol use: No Drug use: Never Current Outpatient Medications Medication Sig Dispense Refill RED YEAST RICE ORAL Take by mouth. MULTIVITAMIN ORAL Take by mouth. lisinopril (ZESTRIL, PRINIVIL) 40 mg tablet Take 1 tablet by mouth once daily. 90 tablet 3 omeprazole (PRILOSEC) 40 mg capsule Take 1 capsule by mouth once daily. 90 capsule 3 fluticasone (FLONASE) 50 mcg/actuation nasal spray Use 2 Sprays in each nostril once daily. 1 Each 11 amLODIPine (NORVASC) 5 mg tablet Take 1 tablet by mouth once daily. 30 tablet 5 ubidecarenone/vitamin E mixed (COQ10 SG 100 ORAL) Take by mouth once daily. naproxen (NAPROSYN) 500 mg tablet Take 1 tablet by mouth twice daily with meals. 60 tablet 11 lansoprazole (PREVACID) 30 mg capsule Take 1 capsule by mouth once daily. 90 capsule 3 No current facility-administered medications for this visit. I have confirmed and edited as necessary the past medical, family and social histories, HPI, and ROS obtained by others. Objective BP 120/84 Pulse 77 Temp 98.4 Ht 5' 0 (1.52m) Wt 144 lb (65.3kg) SpO2 99% BMI 28.12 kg/(m2). Physical Exam Vitals and nursing note reviewed. Constitutional: General: She is not in acute distress. Appearance: Normal appearanc (more content not included)... [facility] 01-27-2023 History of Presen t illness Narrative Images from the original note were not included. [facility] [place] DO [place] [address] [place] [address] Date of Evaluation: 01/27/2023 Patient Name: Carolann Daily : 1955 Chief Complaint: Patient presents with: Hypertension 6 Month Exam Heartburn Nursing Intake: There are no exam notes on file for this visit. Subjective Ms. Daily is a 67 year old female who presents with the following complaint(s): The history is provided by the patient. No rf design engineer was used. Hypertension This is a chronic problem. The current episode started more than 1 year ago. Pertinent negatives include no chest pain, headaches, palpitations or shortness of breath. Hypercholesterolemia This is a chronic problem. The current episode started more than 1 year ago. Pertinent negatives include no chest pain or shortness of breath. Musculoskeletal Problem This is a chronic problem. Associated symptoms include arthralgias. Pertinent negatives include no chest pain, coughing, fatigue, headaches, numbness or weakness. GERD She complains of heartburn. She reports no chest pain or no coughing. This is a chronic problem. The problem has been gradually worsening. Pertinent negatives include no fatigue. Review of Systems Constitutional: Negative for fatigue and unexpected weight change. HENT: Negative for nosebleeds. Eyes: Negative for redness and visual disturbance. Respiratory: Negative for apnea, cough and shortness of breath. Cardiovascular: Negative for chest pain, palpitations and leg swelling. Gastrointestinal: Positive for heartburn. Genitourinary: Negative for hematuria. Musculoskeletal: Positive for arthralgias. Neurological: Negative for dizziness, weakness, light-headedness, numbness and headaches. Hematological: Does not bruise/bleed easily. Psychiatric/Behavioral: The patient is not nervous/anxious. PAST MEDICAL HISTORY Diagnosis Date Acute gastritis without mention of hemorrhage Allergic rhinitis due to pollen Arthritis Dizziness Esophageal reflux Essential (primary) hypertension Fatigue Gastro-esophageal reflux disease with esophagitis Gastroesophageal reflux disease without esophagitis Greater trochanteric pain syndrome Internal hemorrhoids without mention of complication Iron deficiency anemia, unspecified Localized, primary osteoarthritis Low back pain Mixed hyperlipidemia Statin Intolerance Overweight PMH - PAST MEDICAL HISTORY OF tennis elbow PMH - PAST MEDICAL HISTORY OF bp can run low at times PONV (postoperative nausea and vomiting) Postmenopausal atrophic vaginitis Urinary tract infectious disease Vitamin D deficiency PAST SURGICAL HISTORY Procedure Laterality Date CARPAL TUNNEL Bilateral COLONOSCOPY FLX DX W/COLLJ SPEC WHEN PFRMD 11/25/2006 COLONOSCOPY FLX DX W/COLLJ SPEC WHEN PFRMD 06/25/2021 EGD TRANSORAL BIOPSY SINGLE/MULTIPLE 11/25/2006 ESOPHAGOGASTRODUODENOSCOPY TRANSORAL DIAGNOSTIC 10/21/2003 EGD ESOPHAGOGASTRODUODENOSCOPY TRANSORAL DIAGNOSTIC 06/25/2021 PAST SURGICAL HISTORY OF 07/12/1992 partial hysterectomy due to fibroids TONSILLECTOMY PRIMARY/SECONDARY <AGE 12 01/01/1979 Tonsillectomy VAGINAL HYSTERECTOMY FAMILY HISTORY Problem Relation Age of Onset Diabetes Mother Cancer Father Arthritis Sister Diabetes Maternal Grandfather Social History Tobacco Use Smoking status: Never Smokeless tobacco: Never Vaping Use Vaping Use: Never used Substance Use Topics Alcohol use: No Drug use: Never Current Outpatient Medications Medication Sig Dispense Refill RED YEAST RICE ORAL Take by mouth. MULTIVITAMIN ORAL Take by mouth. lisinopril (ZESTRIL, PRINIVIL) 40 mg tablet Take 1 tablet by mouth once daily. 90 tablet 3 omeprazole (PRILOSEC) 40 mg capsule Take 1 capsule by mouth once daily. 90 capsule 3 fluticasone (FLONASE) 50 mcg/actuation nasal spray Use 2 Sprays in each nostril once daily. 1 Each 11 amLODIPine (NORVASC) 5 mg tablet Take 1 tablet by mouth once daily. 30 tablet 5 ubidecarenone/vitamin E mixed (COQ10 SG 100 ORAL) Take by mouth once daily. naproxen (NAPROSYN) 500 mg tablet Take 1 tablet by mouth twice daily with meals. 60 tablet 11 lansoprazole (PREVACID) 30 mg capsule Take 1 capsule by mouth once daily. 90 capsule 3 No current facility-administered medications for this visit. I have confirmed and edited as necessary the past medical, family and social histories, HPI, and ROS obtained by others. Objective BP 120/84 Pulse 77 Temp 98.4 Ht 5' 0 (1.52m) Wt 144 lb (65.3kg) SpO2 99% BMI 28.12 kg/(m^2). Physical Exam Vitals and nursing note reviewed. Constitutional: General: She is not in acute distress. Appearance: Normal appearance. She is well-developed. She is not ill-appearing. HENT: Head: Normocephalic. Right Ear: Tympanic membrane, ear canal and external ear normal. There is no impacted cerumen. Left Ear: Tympanic membrane, ear canal and external ear normal. There is no impacted cerumen. Nose: Nose normal. Mouth/Throat: Mouth: Mucous membranes are moist. Pharynx: Oropharynx is clear. Uvula midline. No oropharyngeal exudate or posterior oropharyngeal erythema. Eyes: General: Lids are normal. Vision grossly intact. Gaze aligned appropriately. No scleral icterus. Right eye: No discharge. Left eye: No discharge. Extraocular Movements: Extraocular movements intact. Conjunctiva/sclera: Conjunctivae normal. Pupils: Pupils are equal, round, and reactive to light. Neck: Thyroid: No thyroid mass, thyromegaly or thyroid tenderness. Vascular: No carotid bruit. Trachea: Trachea and phonation normal. Cardiovascular: Rate and Rhythm: Normal rate and regular rhythm. Pulses: Normal pulses. Heart sounds: Normal heart sounds. Pulmonary: Effort: Pulmonary effort is normal. Breath sounds: Normal breath sounds. Abdominal: General: Abdomen is flat. Bowel sounds are normal. Palpations: Abdomen is soft. Musculoskeletal: General: Normal range of motion. Right shoulder: Normal. Left shoulder: Normal. Cervical back: Normal, full passive range of motion without pain and neck supple. No tenderness. No spinous process tenderness. Thoracic back: Normal. Lumbar back: Normal. Right knee: Normal. Left knee: Normal. Right lower leg: No edema. Left lower leg: No edema. Lymphadenopathy: Cervical: No cervical adenopathy. Skin: General: Skin is warm and dry. Neurological: General: No focal deficit present. Mental Status: She is alert and oriented to person, place, and time. Mental status is at baseline. Sensory: Sensation is intact. Motor: Motor function is intact. Psychiatric: Attention and Perception: Attention and perception normal. Mood and Affect: Mood normal. Speech: Speech normal. Behavior: Behavior normal. Thought Content: Thought content normal. Judgment: Judgment normal. Data Reviewed: No new labs ASSESSMENT/PLAN: 1. Hypertension, essential - ICD9: 401.9, ICD10: I10 (primary diagnosis) - good control - Continue current medication(s) - Recommended regular aerobic exercise. - Recommend home blood pressure monitoring, to bring results in on next visit - Goal of BP <130/80 2. Mixed hyperlipidemia - ICD9: 272.2, ICD10: E78.2 - to be determined upon return of lab results - Encouraged following a low fat, low cholesterol diet. - CBC + DIFF - COMP METABOLIC PANEL - LIPID PANEL BASIC - URINALYSIS, WITH MICROSCOPIC 3. Primary osteoarthritis involving multiple joints - ICD9: 715.98, ICD10: M15.9 - Continue current medication - NAPROXEN 500 MG TABLET 4. GERD without esophagitis - ICD9: 530.81, ICD10: K21.9 - Discontinue Omeprazole - Start Lansoprazole - LANSOPRAZOLE 30 MG CAPSULE,DELAYED RELEASE 5. Statin intolerance - ICD9: 995.27, ICD10: Z78.9 6. Screening for thyroid disorder - ICD9: V77.0, ICD10: Z13.29 - TSH BLD Jah Ryan DO Return in about 6 months (around 07/29/2023) for medication follow up. Attestation: Scribe Statement: Jose Pepe am scribing for, and in the presence of, Jah Ryan DO January 27, 2023 1:29 PM. Physician Statement: I, Jah Ryan DO, personally performed the services described in the documentation, as scribed by Danyelle Pepe in my presence, and it is both accurate and complete January 27, 2023 1:33 PM. documented in this encounter [facility] 08-06-2022 Miscellaneous Notes Formattin g of this note might be different from the original. Faxed order through [employer] to number below Pended Diana from [facility] mammography department called and left a voicemail saying patient is scheduled for tomorrow and they need a new order that says 3D or with azul on it Wants order faxed to [phone] documented in this encounter [facility] 07-29-2022 History of Presen t illness Narrative Images from the original note were not included. [facility] [address] [place] [address] Date of Evaluation: 07/29/2022 Patient Name: Carolann Daily : 1955 Chief Complaint: Patient presents with: Hypertension: 2 week recheck. Discuss times of blood pressure medications. Nursing Intake: There are no exam notes on file for this visit. Subjective Ms. Daily is a 66 year old female who presents with the following complaint(s): The history is provided by the patient. No rf design engineer was used. Hypertension This is a chronic problem. The current episode started more than 1 year ago. The problem has been rapidly improving (amlodipine added at [facility]) since onset. Pertinent negatives include no chest pain, headaches, palpitations or shortness of breath. Hypercholesterolemia This is a chronic problem. The current episode started more than 1 year ago. Pertinent negatives include no chest pain or shortness of breath. Review of Systems Constitutional: Negative for fatigue and unexpected weight change. HENT: Negative for nosebleeds. Eyes: Negative for redness and visual disturbance. Respiratory: Negative for apnea, cough and shortness of breath. Cardiovascular: Negative for chest pain, palpitations and leg swelling. Genitourinary: Negative for hematuria. Neurological: Negative for dizziness, weakness, light-headedness, numbness and headaches. Hematological: Does not bruise/bleed easily. Psychiatric/Behavioral: The patient is not nervous/anxious. PAST MEDICAL HISTORY Diagnosis Date Acute gastritis without mention of hemorrhage Allergic rhinitis due to pollen Arthritis Dizziness Esophageal reflux Essential (primary) hypertension Fatigue Gastro-esophageal reflux disease with esophagitis Gastroesophageal reflux disease without esophagitis Greater trochanteric pain syndrome Internal hemorrhoids without mention of complication Iron deficiency anemia, unspecified Localized, primary osteoarthritis Low back pain Mixed hyperlipidemia Statin Intolerance Overweight PMH - PAST MEDICAL HISTORY OF tennis elbow PMH - PAST MEDICAL HISTORY OF bp can run low at times PONV (postoperative nausea and vomiting) Postmenopausal atrophic vaginitis Urinary tract infectious disease Vitamin D deficiency PAST SURGICAL HISTORY Procedure Laterality Date CARPAL TUNNEL Bilateral COLONOSCOPY FLX DX W/COLLJ SPEC WHEN PFRMD 11/25/2006 COLONOSCOPY FLX DX W/COLLJ SPEC WHEN PFRMD 06/25/2021 EGD TRANSORAL BIOPSY SINGLE/MULTIPLE 11/25/2006 ESOPHAGOGASTRODUODENOSCOPY TRANSORAL DIAGNOSTIC 10/21/2003 EGD ESOPHAGOGASTRODUODENOSCOPY TRANSORAL DIAGNOSTIC 06/25/2021 PAST SURGICAL HISTORY OF 07/12/1992 partial hysterectomy due to fibroids TONSILLECTOMY PRIMARY/SECONDARY <AGE 10 01/01/1979 Tonsillectomy VAGINAL HYSTERECTOMY FAMILY HISTORY Problem Relation Age of Onset Diabetes Mother Cancer Father Arthritis Sister Diabetes Maternal Grandfather Social History Tobacco Use Smoking status: Never Smokeless tobacco: Never Vaping Use Vaping Use: Never used Substance Use Topics Alcohol use: No Drug use: Never Current Outpatient Medications Medication Sig Dispense Refill RED YEAST RICE ORAL Take by mouth. MULTIVITAMIN ORAL Take by mouth. lisinopril (ZESTRIL, PRINIVIL) 40 mg tablet Take 1 tablet by mouth once daily. 90 tablet 3 omeprazole (PRILOSEC) 40 mg capsule Take 1 capsule by mouth once daily. 90 capsule 3 fluticasone (FLONASE) 50 mcg/actuation nasal spray Use 2 Sprays in each nostril once daily. 1 Each 11 amLODIPine (NORVASC) 5 mg tablet Take 1 tablet by mouth once daily. 30 tablet 5 ubidecarenone/vitamin E mixed (COQ10 SG 100 ORAL) Take by mouth once daily. No current facility-administered medications for this visit. I have confirmed and edited as necessary the past medical, family and social histories, HPI, and ROS obtained by others. Objective BP 130/70 Pulse 93 Temp 97.6 Ht 5' 0 (1.52m) Wt 142 lb (64.4kg) SpO2 99% BMI 27.73 kg/(m^2). Physical Exam Vitals and nursing note reviewed. Constitutional: General: She is not in acute distress. Appearance: Normal appearance. She is well-developed. She is not ill-appearing. HENT: Head: Normocephalic. Right Ear: Tympanic membrane, ear canal and external ear normal. There is no impacted cerumen. Left Ear: Tympanic membrane, ear canal and external ear normal. There is no impacted cerumen. Nose: Nose normal. Mouth/Throat: Mouth: Mucous membranes are moist. Pharynx: Oropharynx is clear. Uvula midline. No oropharyngeal exudate or posterior oropharyngeal erythema. Eyes: General: Lids are normal. Vision grossly intact. Gaze aligned appropriately. No scleral icterus. Right eye: No discharge. Left eye: No discharge. Extraocular Movements: Extraocular movements intact. Conjunctiva/sclera: Conjunctivae normal. Pupils: Pupils are equal, round, and reactive to light. Neck: Thyroid: No thyroid mass, thyromegaly or thyroid tenderness. Vascular: No carotid bruit. Trachea: Trachea and phonation normal. Cardiovascular: Rate and Rhythm: Normal rate and regular rhythm. Pulses: Normal pulses. Heart sounds: Normal heart sounds. Pulmonary: Effort: Pulmonary effort is normal. Breath sounds: Normal breath sounds. Abdominal: General: Abdomen is flat. Bowel sounds are normal. Palpations: Abdomen is soft. Musculoskeletal: General: Normal range of motion. Right shoulder: Normal. Left shoulder: Normal. Cervical back: Normal, full passive range of motion without pain and neck supple. No tenderness. No spinous process tenderness. Thoracic back: Normal. Lumbar back: Normal. Right knee: Normal. Left knee: Normal. Right lower leg: No edema. Left lower leg: No edema. Lymphadenopathy: Cervical: No cervical adenopathy. Skin: General: Skin is warm and dry. Neurological: General: No focal deficit present. Mental Status: She is alert and oriented to person, place, and time. Mental status is at baseline. Sensory: Sensation is intact. Motor: Motor function is intact. Psychiatric: Attention and Perception: Attention and perception normal. Mood and Affect: Mood normal. Speech: Speech normal. Behavior: Behavior normal. Thought Content: Thought content normal. Judgment: Judgment normal. Data Reviewed: No new labs ASSESSMENT/PLAN: 1. Hypertension, essential - ICD9: 401.9, ICD10: I10 (primary diagnosis) Improved control. Parameters of monitoring explained to patient. - Continue current medication(s) - Recommended regular aerobic exercise. - Recommend home blood pressure monitoring, to bring results in on next visit - Goal of BP <130/80 2. Mixed hyperlipidemia - ICD9: 272.2, ICD10: E78.2 - suboptimal control - Encouraged following a low fat, low cholesterol diet. - Ana Rosa Justice, Patient will research. Jah Ryan DO Return in about 6 months (around 01/27/2023). Attestation: Scribe Statement: Jose Pepe am scribing for, and in the presence of, Jah Ryan DO July 29, 2022 2:03 PM. Physician Statement: I, Jah Ryan DO, personally performed the services described in the documentation, as scribed by Danyelle Pepe in my presence, and it is both accurate and complete July 29, 2022 2:07 PM. documented in this encounter [facility] 06-12-2022 Miscellaneous Notes Formattin g of this note might be different from the original. ----- Message from Betty Roche sent at 06/12/2022 10:12 AM EDT ----- Regarding: Medicine /Jah Ryan/ pt received message that she needed an apt--would like clarification on what apt is for--states Dr goldstein pt she did not need an apt for med refills Patient has been identified by name and Date of (Y/N): y Patient: Carolann Daily Date of : 1955 Provider for this encounter: Jah Ryan DO Reason for the call/escalation: pt received message that she needed an apt--would like clarification on what apt is for--states Dr goldstein pt she did not need an apt for med refills Was Patient Referred to 911/Seek Emergency Treatment (Y/N): no Did Patient Agree (Y/N): n/a Was An Attempt Made To Transfer The Patient To The Office (Y/N): no Were You Able To Reach Someone At The Office (Y/N): n/a If Yes - Patient Was Transferred To (Caregivers Name): n/a If No - Which [facility] Leadership Customer Equipment Engineer Did You Speak With Regarding This Patient: n/a Was an appointment scheduled (Y/N): no Reason patient was requesting visit (RFV/signs and symptoms/diagnosis) : pt received message that she needed an apt--would like clarification on what apt is for--states Dr informed pt she did not need an apt for med refills Person calling if other than patient: n/a Return call to if other than patient: n/a Best contact number: [phone] Thank you, Betty Roche June 12, 2022 10:12 AM documented in this encounter [facility] 06-11-2022 Miscellaneous Notes Formattin g of this note might be different from the original. Yes she should have an appt in Jun. Thanks Does the Pt need an appointment? Pharmacy faxed requesting the following refill Refill(s) Requested: Requested Prescriptions Pending Prescriptions Disp Refills lisinopril (ZESTRIL, PRINIVIL) 40 mg tablet [Pharmacy Med Name: Lisinopril 40 MG Oral Tablet] 90 tablet 0 Sig: Take 1 tablet by mouth once daily omeprazole (PRILOSEC) 40 mg capsule [Pharmacy Med Name: Omeprazole 40 MG Oral Capsule Delayed Release] 90 capsule 0 Sig: Take 1 capsule by mouth once daily ALLERGIES Allergen Reactions Azithromycin Rash inflames mouth Sulfa (Sulfonamide * Rash inflames mouth (home) [phone] (cell) Last Office Visit Date: 12/11/2021 Last Distance Health Visit: Visit date not found Future Appointment: Visit date not found The patients preferred pharmacy has been captured for this encounter? yes Request is for script(s) to be escript to pharmacy. Deb Childs LPN documented in this encounter [facility] 03-01-2022 Miscellaneous Notes Pharmacy faxed requesting the following refill Refill(s) Requested: Pending Prescriptions Disp Refills LISINOPRIL 40 MG TABLET 90 tablet 0 Sig: Take 1 tablet by mouth once daily JOCELIN: Yes OMEPRAZOLE 40 MG CAPSULE,DELAYED RELEASE 90 capsule 0 Sig: Take 1 capsule by mouth once daily JOCELIN: Yes ALLERGIES Allergen Reactions Azithromycin Rash inflames mouth Sulfa (Sulfonamide * Rash inflames mouth (home) [phone] (cell) Last Office Visit Date: 12/11/2021 Last Distance Health Visit: Visit date not found Future Appointment: Visit date not found The patients preferred pharmacy has been captured for this encounter? yes Request is for script(s) to be escript to pharmacy. Jacquelin Braden LPN documented in this encounter [facility] documented as of this encounter (statuses as of 03/01/2022) [facility]21 History of Past illness Narrative* Problem Noted Date Resolved Date Gastro-esophageal reflux disease with esophagiti s 06/25/2021 Gastroesophageal reflux disease 06/25/2021 documented as of this encounter (statuses as of 06/11/2022) [facility] History of Past illness Narrative* Problem Noted Date Resolved Date Gastro-esophageal reflux disease with esophagiti s 06/25/2021 Gastroesophageal reflux disease 06/25/2021 documented as of this encounter (statuses as of 06/12/2022) [facility] History of Past illness Narrative* Problem Noted Date Resolved Date Gastro-esophageal reflux disease with esophagiti s 06/25/2021 Gastroesophageal reflux disease 06/25/2021 documented as of this encounter (statuses as of 08/04/2022) [address]20-2021 History of Past illness Narrative* Problem Noted Date Resolved Date Gastro-esophageal reflux disease with esophagiti s 06/25/2021 Gastroesophageal reflux disease 06/25/2021 documented as of this encounter (statuses as of 08/06/2022) [address]20-2021 History of Past illness Narrative* Problem Noted Date Resolved Date Gastro-esophageal reflux disease with esophagiti s 06/25/2021 documented as of this encounter (statuses as of 01/29/2023) [address]20-2021 History of Past illness Narrative* Problem Noted Date Resolved Date Gastro-esophageal reflux disease with esophagiti s 06/25/2021 documented as of this encounter (statuses as of 02/06/2023) [address]20-2021 History of Past illness Narrative* Problem Noted Date Diagnosed Date Resolved Date Gastro-esophageal reflux dis ease with esophagitis 06/25/2021 documented as of this encounter (statuses as of 04/15/2023) [address]20-2021 History of Past illness Narrative* Problem Noted Date Diagnosed Date Resolved Date Gastro-esophageal reflux dis ease with esophagitis 06/25/2021 documented as of this encounter (statuses as of 08/07/2023) [address]20-2021 History of Past illness Narrative* Problem Noted Date Diagnosed Date Resolved Date Gastro-esophageal reflux dis ease with esophagitis 06/25/2021 documented as of this encounter (statuses as of 08/21/2023) [facility] Diagnosis Essential (primary) hypertension Unspecified essential hypertension Gastroesophageal reflux disease without esophagitis Esophageal reflux [facility] Diagnosis Essential (primary) hypertension Unspecified essential hypertension Gastroesophageal reflux disease without esophagitis Esophageal reflux [facility] Diagnosis Hypertension, essential- Primary Unspecified essential hypertension Mixed hyperlipidemia [facility] Diagnosis Screening mammogram for breast cancer- Primary [facility] Diagnosis Essential (primary) hypertension Unspecified essential hypertension documented in this encounter [facility] note* Diagnosis Hypertension, essential- Primary Unspecified essential hypertension Mixed hyperlipidemia Primary osteoarthritis involving multiple joints GERD without esophagitis Esophageal reflux Statin intolerance Other drug allergy Screening for thyroid disorder documented in this encounter [facility] note* Diagnosis Essential (primary) hypertension Unspecified essential hypertension documented in this encounter [facility] note* Diagnosis Essential (primary) hypertension- Primary Unspecified essential hypertension Anemia, unspecified type Aortic valve stenosis, etiology of cardiac valve disease unspecified Heart murmur Undiagnosed cardiac murmurs Overweight with body mass index (BMI) of 27 to 27.9 in adult documented in this encounter [facility] for referral (narrative)* Diagnostic Procedure Only (Routine) - Pending Review Specialty Diagnoses / Procedures Referred By Kristian t Referred To Contact [facility] Diagnoses Screening mammogram for breast cancer Procedures BRANDEE SCREENING W AZUL SCREENING DIGITAL BREAST TOMOSYNTHESIS BI SCREENING MAMMOGRAPHY BI 2-VIEW BREAST INC Jah Morrison DO [address] [place] [id number] [facility] [address] [place] [address] Referral ID Status Reason Start Date Expiration Date Visits Requested Visits Authorized [id number] Pending Review Auto-Generat ed Referral 08/06/2022 09/05/2023 1 1 [facility] Advance Directives No Advanced Directives Records FoundDocuments on File Type Date Recorded 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 Advance Directive(s) 06/25/2021 7:15 AM Advance Directive(s) 06/04/2021 11:37 AM Summary Purpose Family History No Family History Records FoundNo Family History Records Found Additional Source Comments Source Comments (unrecognize d section and content) In the event this informatio n is protected by the Federal Confidentiality of Alcohol and Drug Abuse Patient Records regulations: The Federal rules restrict any use of the information to criminally investigate or prosecute any alcohol or drug abuse patient.[facility] the event this information is protected by the Federal Confidentiality of Alcohol and Drug Abuse Patient Records regulations: The Federal rules restrict any use of the information to criminally investigate or prosecute any alcohol or drug abuse patient.[facility] the event this information is protected by the Federal Confidentiality of Alcohol and Drug Abuse Patient Records regulations: The Federal rules restrict any use of the information to criminally investigate or prosecute any alcohol or drug abuse patient.[facility] the event this information is protected by the Federal Confidentiality of Alcohol and Drug Abuse Patient Records regulations: The Federal rules restrict any use of the information to criminally investigate or prosecute any alcohol or drug abuse patient.[facility] the event this information is protected by the Federal Confidentiality of Alcohol and Drug Abuse Patient Records regulations: The Federal rules restrict any use of the information to criminally investigate or prosecute any alcohol or drug abuse patient.[facility] the event this information is protected by the Federal Confidentiality of Alcohol and Drug Abuse Patient Records regulations: The Federal rules restrict any use of the information to criminally investigate or prosecute any alcohol or drug abuse patient.[facility] the event this information is protected by the Federal Confidentiality of Alcohol and Drug Abuse Patient Records regulations: The Federal rules restrict any use of the information to criminally investigate or prosecute any alcohol or drug abuse patient.[facility] the event this information is protected by the Federal Confidentiality of Alcohol and Drug Abuse Patient Records regulations: The Federal rules restrict any use of the information to criminally investigate or prosecute any alcohol or drug abuse patient.[facility] the event this information is protected by the Federal Confidentiality of Alcohol and Drug Abuse Patient Records regulations: The Federal rules restrict any use of the information to criminally investigate or prosecute any alcohol or drug abuse patient.[facility] the event this information is protected by the Federal Confidentiality of Alcohol and Drug Abuse Patient Records regulations: The Federal rules restrict any use of the information to criminally investigate or prosecute any alcohol or drug abuse patient.[facility] Reason for Visit (unrecogniz ed section and content) Reason Comments Patient Update Reason Comments Hypertension 2 week recheck. Disc uss times of blood pressure medications. Reason Comments Orders Reason Comments Hypertension 6 Month Exam Heartburn Reason Comments Appointment Reason Comments Wellness Yearly wellness Results Had recent blood wor k. Care Teams (unrecognized sec tion and content) Customer Equipment Engineer Relationship Specialty Start Date End Date Jah Ryan DO [address] [place] [address] PCP - General Family Practice 06/04/21 Customer Equipment Engineer Relationship Specialty Start Date End Date Jah Ryan DO [address] [place] [address] PCP - General Family Practice 06/04/21 Customer Equipment Engineer Relationship Specialty Start Date End Date Jah Ryan DO [address] [place] [address] PCP - General Family Medicine 06/04/21 Customer Equipment Engineer Relationship Specialty Start Date End Date Jah Ryan DO [address] [place] [address] PCP - General Family Medicine 06/04/21 Customer Equipment Engineer Relationship Specialty Start Date End Date Jah Ryan DO [address] [place] [address] PCP - General Family Medicine 06/04/21 Customer Equipment Engineer Relationship Specialty Start Date End Date Jah Ryan DO PCP - General Family Medicine 06/04/21 Customer Equipment Engineer Relationship Specialty Start Date End Date Jah Ryan DO PCP - General Family Medicine 06/04/21 Customer Equipment Engineer Relationship Specialty Start Date End Date Jah Ryan DO PCP - General Family Medicine 06/04/21 INFORMATION SOURCE (unrecogn ized section and content) DATE CREATED AUTHOR AUTHOR'S HELEN ATION 09/10/2023 [facility] FOR RECORDS PERTAINING TO PATIENTS WHO ARE OR HAVE BEEN ENROLLED IN A CHEMICAL DEPENDENCY/SUBSTANCEABUSE PROGRAM, SOME INFORMATION MAY BE OMITTED. This clinical summary was aggregated from multiple sources. Caution should be exercised in using it in the provision of clinical care. This summary normalizes information from multiple sources, and as a consequence, information in this document may materially change the coding, format and clinical context of patient data. In addition, data may be omitted in some cases. CLINICAL DECISIONS SHOULD BE BASED ON THE PRIMARY CLINICAL RECORDS. [facility] [employer] [facility]. provides no warranty or guarantee of the accuracy or completeness of information in this document.
--- NOTE | 2023-10-13 11:21 | STRESSREP ---
Stress Test Report Date: 10/13/2023 Procedure: Pharmacologic stress nuclear imaging study Indications: Palpitation Consent: Per the patient Procedure: The patient underwent pharmacologic (Regadenoson 0.4mg ) evaluation with a peak heart rate of 106 beats per minute (70%predicted maximal heart rate) and a peak blood pressure of 124/70 mmHg. The baseline ECG demonstrated sinus rhythm. The peak pharmacologic ECG demonstrated no ischemic change. There were no cardiac dysrhythmias pretest, during pharmacologic infusion, or recovery. There was no complaint of chest discomfort during pharmacologic infusion or recovery. The patient was injected with 10.7 millicuries of technetium 99m Cardiolite and subsequently rest SPECT Cardiolite nuclear imaging was obtained in the horizontal long, vertical long, and short axis views. The patient underwent pharmacologic (Regadenoson) evaluation. The patient was injected with 33.9 millicuries of technetium 99m Cardiolite and subsequently stress SPECT Cardiolite nuclear imaging was obtained in the horizontal long, vertical long, and short axis views. A gated Cardiolite study at peak stress was obtained. The examination was stopped secondary to completion of protocol. Rest and stress SPECT Cardiolite nuclear imaging status post realignment, normalization, and attenuation correction demonstrate small reversible apical defect suggestive of mild ischemia. There is end systolic thickening and brightening. The gated Cardiolite study demonstrates myocardial thickening and inward wall motion. The reported LVEF is 84%. Impression: 1. Pharmacologic (Regadenoson) evaluation 2. Peak pharmacologic ECG with no ischemic changes. 3. There were no cardiac dysrhythmias pretest, during pharmacologic infusion, or recovery. 5. Small apical reversible perfusion defect suggestive of ischemia. 6. The gated Cardiolite study reports an LVEF of 84%. This note was generated with [employer] software. It may contain incorrect words, spelling, and punctuation that were not noted in checking the note before signing.
== END | disposition home or self-care (01) ==
LOC: CVS 07:07
PROVIDERS: PCP Family Medicine; Visit Provider Internal Medicine Cardiovascular Disease
DX: R00.2 Palpitations (principal); E78.5 Hyperlipidemia, unspecified; I35.0 Nonrheumatic aortic (valve) stenosis; R93.1 Abnormal findings on diagnostic imaging of heart and coronary circulation; R01.1 Cardiac murmur, unspecified; I25.10 Atherosclerotic heart disease of native coronary artery without angina pectoris
CPT/HCPCS: 78452; 93017; A9500; A4216; J2785

== ENCOUNTER → 2023-11-03 | Outpatient (CLI) | payer MEDICARE, SELFPAY ==
--- OUTSIDE RECORDS SUMMARY | 2023-11-03 12:43 | XMS RPT_ITS | CCD ---
Author Name Unknown Address [address] [place] [address] Organization [facility] Care Team Providers Care Forestry Laborer Name Role Phone Piero MCKEON, Allan Abbott Unavailable Idalia DO, [place] Javier Primary Care Provid er Idalia DO, [place] Javier Primary Care Provid er Idalia DO, Jah Javier Primary Care Provid er Idalia DO, [place] Javier Primary Care Provid er Idalia DO, [place] Javier Primary Care Provid er IDALIA, JAH JAVIER Primary Care Unavai lable IDALIA, JAH JAVIER Referring Unavai lable IDALIA, JAH JAVIER Primary Care Unavai lable IDALIA, JAH JAVIER Referring Unavai lable IDALIA, JAH JAVIER Primary Care Unavai lable IDALIA, JAH JAVIER Referring Unavai lable IDALIA, JAH JAVIER Primary Care Unavai lable IDALIA, JAH JAVIER Referring Unavai lable IDALIA, JAH JAVIER Attending Unavai lable IDALIA, JAH JAVIER Primary Care Unavai lable IDALIA, JAH JAVIER Attending Unavai lable IDALIA, JAH JAVIER Primary Care Unavai lable IDALIA, JAH JAVIER Primary Care Unavai lable IDALIA, JAH JAVIER Attending Unavai lable Allergies Allergy Classification Reported Allergen(s) Allergy Type Date of Onset Reaction(s) Facility (5 sources) azithromycin drug allergy 7 [facility] Work Phone: (5 sources) sulfamethoxazole / trimethoprim drug allergy 7 [facility] Work Phone: (12 sources) Azithromycin; Translations: [AZITHROMYCIN] Drug Allergy 7 [facility] (12 sources) Sulfonamides (Antibiotic); Translations: [SULFA (SULFONAMIDE ANTIBIOTICS)] Drug Allergy 7 [facility] Medications Current Medications Medication Drug Class(es) Dates [...] Estrogen Start: 05-28-2017 VAGIFEM TABS ESTRADIOL TABS [id number] Allan Harry MD Problems Active Problems Problem [...] Facility 08-18-2023 15:15-0500 Body height 152.4 cm [place] Idalia [employer] Work Phone: [facility] 08-18-2023 15:15-0500 Body temperature 97.5 [degF] [place] Idalia [employer] Work Phone: [facility] 08-18-2023 15:15-0500 Body weight 63.05 kg [facility] [employer] Work Phone: [facility] 08-18-2023 15:15-0500 Diastolic blood pressure 72 mm[Hg] [facility] [employer] Work Phone: [facility] 08-18-2023 15:15-0500 Heart rate 73 /min Jah Idalia DO Work Phone: [facility] 08-18-2023 15:15-0500 SaO2% (BldA) [Mass fraction] 100 % Jah Idalia DO Work Phone: [facility] 08-18-2023 15:15-0500 Systolic blood pressure 132 mm[Hg] Jah Idalia DO Work Phone: [facility] 01-27-2023 13:04-0400 Body height 152.4 cm Jah Idalia DO Work Phone: [facility] 01-27-2023 13:04-0400 Body temperature 98.4 [degF] Jah Idalia DO Work Phone: [facility] 01-27-2023 13:04-0400 Body weight 65.32 kg Jah Idalia DO Work Phone: [facility] 01-27-2023 13:04-0400 Diastolic blood pressure 84 mm[Hg] [place] Idalia DO Work Phone: [facility] 01-27-2023 13:04-0400 Heart rate 77 /min [place] Idalia DO Work Phone: [facility] 01-27-2023 13:04-0400 SaO2% (BldA) [Mass fraction] 99 % Jah Idalia DO Work Phone: [facility] 01-27-2023 13:04-0400 Systolic blood pressure 120 mm[Hg] Jah Idalia DO Work Phone: [facility] 07-29-2022 14:03-0400 Diastolic blood pressure 70 mm[Hg] Jah Idalia DO Work Phone: [facility] 07-29-2022 14:03-0400 Systolic blood pressure 130 mm[Hg] Jah Idalia DO Work Phone: [facility] 07-29-2022 13:34-0400 Body height 152.4 cm Jah Idalia DO Work Phone: [facility] 07-29-2022 13:34-0400 Body temperature 97.59 [degF] Jah Chorio DO Work Phone: [facility] 07-29-2022 13:34-0400 Body weight 64.41 kg Jah Chorio DO Work Phone: [facility] 07-29-2022 13:34-0400 Heart rate 93 /min [place] Chorio DO Work Phone: [facility] 07-29-2022 13:34-0400 SaO2% (BldA) [Mass fraction] 99 % Jah Chorio DO Work Phone: [facility] 05-28-2017 11:06-0400 BMI (Body Mass Index) 29.09 kg/m2 Allan Harry MD [facility] Work Phone: 05-28-2017 11:06-0400 BP Diastolic 80 mm[Hg] Allan Harry MD [facility] Work Phone: 05-28-2017 11:06-0400 BP Systolic 144 mm[Hg] Allan Harry MD [facility] Work Phone: 05-28-2017 11:06-0400 Height 154.94 cm Allan Harry MD [facility] Work Phone: 05-28-2017 11:06-0400 Pulse (Heart Rate) 62 /min Allan Harry MD [facility] Work Phone: 05-28-2017 11:06-0400 Respiratory Rate 18 /min Allan Harry MD [facility] Work Phone: 05-28-2017 11:06-0400 Weight 69.85 kg Allan Harry MD [facility] Work Phone: Encounters Encounter Date Encounter Type Care Provider Facility Start: 09-08-2023 End: 09-09-2023 ambulatory [place] JAVIER IDALIA Facility:[facility] Start: 08-18-2023 End: 08-18-2023 ambulatory [facility] Facility:[facility] Start: 08-18-2023 End: 08-18-2023 Patient encounter procedure Jah Ryan DO Work Phone: [facility] [place] Procedures Date Procedure Procedure Detail Performing Clinician Start: 08-01-2023 Lipid 1996 panel - S sara or Plasma Ag Card Work Phone: Start: 06-25-2021 Colonoscopy Jah Alicea liverio DO Work Phone: Start: 03-07-2021 Adult depression scr eening assessment Jah Ryan DO Work Phone: Start: 05-22-2020 Mammography Jha O liverio DO Work Phone: Plan of Treatment Date Care Activity Detail Author Start: 06-25-2031 Colonoscopy COLONOSCOPY [facility] Start: 06-25-2031 COLORECTAL CANCER SCREENING COLORECTAL CANCER SCREENING [facility] Start: 09-22-2030 Urine microalbumin profile [facility] Start: 08-01-2028 Lipid 1996 panel - Serum or Plasma Lipid Screening [facility] Start: 12-13-2026 LIPID SCREEN LIPID SCREEN [facility] Start: 08-11-2026 Diabetes Screening Diabetes Screening [facility] Start: 08-01-2026 Diabetes Screening Diabetes Screening [facility] Start: 12-13-2024 DIABETES SCREEN DIABETES SCREEN [facility] Start: 08-18-2024 Annual PCP Team Chronic Disease Visit Annual PCP Team Chronic Disease Visit [facility] Start: 07-29-2024 Annual PCP Team Chronic Disease Visit Annual PCP Team Chronic Disease Visit [facility] Start: 01-28-2024 ANNUAL PCP TEAM CHRONIC DISEASE VISIT ANNUAL PCP TEAM CHRONIC DISEASE VISIT [facility] Start: 08-18-2023 End: 11-17-2023 Cobalamin (Vitamin B12) [Mass/volume] in Serum or Plasma VITAMIN B12 BLOOD Lab Routine Anemia, unspecified type Expected: 08/18/2023, Expires: 11/17/2023 [facility] Work Phone: Immunizations Immunization Date Immunization Notes Care Provider [facility] 09-22-2020 pneumococcal polysaccharide vaccine, 23 valent Jah Ryan DO Work Phone: [facility] 09-22-2020 tetanus toxoid, redu juan jose diphtheria toxoid, and acellular pertussis vaccine, adsorbed [facility] DO Work Phone: [facility] 08-31-2018 hepatitis A and hepa titis B vaccine [facility] DO Work Phone: [facility] 02-09-2018 hepatitis A and hepa titis B vaccine [facility] DO Work Phone: [facility] 01-12-2018 hepatitis A and hepa titis B vaccine [facility] DO Work Phone: [facility] Payers Date Payer Category Payer Unknown [id number] 2019 Medicare MMO MEDICARE MMO MEDADVANTAGE [place] [id number] 2019-Present [phone] [address] [place] [address] [facility] [id number] 2019 Medicare [id number] Social History Date Type Detail Facility Start: 09-15-2020 End: 07-29-2022 Tobacco smoking status NHIS Never smoked tobacco [facility] Start: 12-11-2021 End: 08-18-2023 Alcohol intake Current non-drinker of alcohol (finding) [facility] Start: 1955 Sex Assigned At Not on file [facility] Start: 09-15-2020 End: 07-29-2022 Tobacco use and exposure Smokeless tobacco non-user [facility] Start: 07-19-2022 End: 07-29-2022 Exposure to SARS-CoV-2 (event) Not sure [facility] Start: 01-27-2023 End: 07-29-2023 History of Social function [facility] Start: 01-27-2023 End: 07-29-2023 Tobacco use panel [facility] Adult Depression Scr eening Assessment 0 [facility] Clinical Notes 06-25-2021 to 08-18-2023 Jah Ryan, DO - 08/18/2023 3:19 PM ESTTelephone Encounter - Alana Tavarez - 08/06/2023 4:15 PM EDTTelephone Encounter - Thais Liang LPN - 04/14/2023 1:45 PM EDT Note Date & Type Note Facility 08-18-2023 Note HNO ID: [id number] Author: Jah Ryan DO Service: ? Author Type: Physician Type: Progress Notes Filed: 08/20/2023 7:15 PM Note Text: [facility] [place] [facility] [place] Jah Ryan DO [address] [place] [address] Date of Evaluation: 08/18/2023 Patient Name: Carolann Daily : 1955 Chief Complaint: Patient presents with: Wellness: Yearly wellness Results: Had recent blood work. Nursing Intake: There are no exam notes on file for this visit. Subjective Ms. Daily is a 67 year old female who presents with the following complaint(s): The history is provided by the patient. No professor of languages was used. Hypertension This is a chronic [...] eye: No discharg (more content not included)... [facility] 08-18-2023 History of Presen t illness Narrative Images from the original note were not included. [facility] [address] [place] [address] Date of Evaluation: 08/18/2023 Patient Name: Carolann Daily : 1955 Chief Complaint: Patient presents with: Wellness: Yearly wellness Results: Had recent blood work. Nursing Intake: There are no exam notes on file for this visit. Subjective Ms. Daily is a 67 year old female who presents with the following complaint(s): The history is provided by the patient. No professor of languages was used. Hypertension This is a chronic [...] 2023 3:45 PM. documented in this encounter [facility] 08-06-2023 Miscellaneous Notes Formattin g of this note might be different from the original. LVM for pt reg her referral that we have receive form PCP Dr. Ryan reg. Aortic stenosis, moderate. Pt has been scheduled with Dr. Lyles on 08/22/23 at [facility] for 8:20a. Office number [phone] option 5 was left in case pt has any questions. Alana Tavarez August 06, 2023 4:16 PM documented in this encounter [facility] 07-29-2023 Note HNO ID: [id number] Author: Jah Ryan DO Service: ? Author Type: Physician Type: Progress Notes Filed: 07/30/2023 9:41 PM Note Text: [facility] [place] Jah Ryan DO [address] [place] [address] Date of Evaluation: 07/29/2023 Patient Name: Carolann Daily : 1955 Chief Complaint: Patient presents with: 6 Month Exam Hypertension Heartburn Nursing Intake: There are no exam notes on file for this visit. Subjective Ms. Daily is a 67 year old female who presents with the following complaint(s): The history is provided by the patient. No professor of languages was used. Hypertension This is a chronic [...] icterus. Right eye: (more content not included)... [facility] 04-14-2023 Miscellaneous Notes Formattin g of [...] Rash inflames mouth Other reaction(s): AOF (home) [phone] (cell) Last Office Visit Date: 01/27/2023 Last Distance Health Visit: Visit date not found Future Appointment: 07/29/2023 The patients preferred pharmacy has been captured for this encounter? yes Request is for script(s) to be escript to pharmacy. Thais Liang LPN documented in this encounter [facility] 01-28-2023 Miscellaneous Notes Formattin g of this [...] Rash inflames mouth Other reaction(s): AOF (home) [phone] (cell) Last Office Visit Date: 01/27/2023 Last Distance Health Visit: Visit date not found Future Appointment: 07/29/2023 The patients preferred pharmacy has been captured for this encounter? yes Request is for script(s) to be escript to pharmacy. Thais Liang LPN documented in this encounter [facility] 01-27-2023 Note HNO ID: [id number] Author: Jah Ryan DO Service: ? Author Type: Physician Type: Progress Notes Filed: 02/05/2023 6:45 PM Note Text: [facility] [place] DO [address] [place] [address] Date of Evaluation: 01/27/2023 Patient Name: Carolann Daily : 1955 Chief Complaint: Patient presents with: Hypertension 6 Month Exam Heartburn Nursing Intake: There are no exam notes on file for this visit. Subjective Ms. Daily is a 67 year old female who presents with the following complaint(s): The history is provided by the patient. No professor of languages was used. Hypertension This is a chronic [...] Appearance: Normal appearanc (more content not included)... [facility] 01-27-2023 History of Presen t illness Narrative Images from the original note were not included. [facility] [place] [facility] [place] DO Idalia [address] [place] [address] Date of Evaluation: 01/27/2023 Patient Name: Carolann Daily : 1955 Chief Complaint: Patient presents with: Hypertension 6 Month Exam Heartburn Nursing Intake: There are no exam notes on file for this visit. Subjective Ms. Daily is a 67 year old female who presents with the following complaint(s): The history is provided by the patient. No professor of languages was used. Hypertension This is a chronic [...] 2023 1:33 PM. documented in this encounter [facility] 08-06-2022 Miscellaneous Notes Formattin g of this note might be different from the original. Faxed order through [employer] to number below Pended Diana from [facility] mammography department called and left a voicemail saying patient is scheduled for tomorrow and they need a new order that says 3D or with azul on it Wants order faxed to [phone] documented in this encounter [facility] 07-29-2022 History of Presen t illness Narrative Images from the original note were not included. [facility] [address] [place] [address] Date of Evaluation: 07/29/2022 Patient Name: Carolann Daily : 1955 Chief Complaint: Patient presents with: Hypertension: 2 week recheck. Discuss times of blood pressure medications. Nursing Intake: There are no exam notes on file for this visit. Subjective Ms. Daily is a 66 year old female who presents with the following complaint(s): The history is provided by the patient. No professor of languages was used. Hypertension This is a chronic problem. The current episode started more than 1 year ago. The problem has been rapidly improving (amlodipine added at [facility]) since onset. Pertinent negatives include no chest [...] 2022 2:07 PM. documented in this encounter [facility] 06-12-2022 Miscellaneous Notes Formattin g of this [...] (Caregivers Name): n/a If No - Which [facility] Leadership Forestry Laborer Did You Speak With Regarding This Patient: [...] other than patient: n/a Best contact number: [phone] Thank you, Betty Roche June 12, 2022 10:12 AM documented in this encounter [facility] 06-11-2022 Miscellaneous Notes Formattin g of this [...] Sulfa (Sulfonamide * Rash inflames mouth (home) [phone] (cell) Last Office Visit Date: 12/11/2021 Last Distance Health Visit: Visit date not found Future Appointment: Visit date not found The patients preferred pharmacy has been captured for this encounter? yes Request is for script(s) to be escript to pharmacy. Deb Childs LPN documented in this encounter [facility] 03-01-2022 Miscellaneous Notes Pharmacy faxed requesting the [...] Sulfa (Sulfonamide * Rash inflames mouth (home) [phone] (cell) Last Office Visit Date: 12/11/2021 Last Distance Health Visit: Visit date not found Future Appointment: Visit date not found The patients preferred pharmacy has been captured for this encounter? yes Request is for script(s) to be escript to pharmacy. Jacquelin Braden LPN documented in this encounter [facility] documented as of this encounter (statuses as of 03/01/2022) [facility]09-20-2021 History of Past illness Narrative* Problem Noted Date Resolved Date Gastro-esophageal reflux disease with esophagiti s 06/25/2021 Gastroesophageal reflux disease 06/25/2021 documented as of this encounter (statuses as of 06/11/2022) [facility]2021 History of Past illness Narrative* Problem Noted Date Resolved Date Gastro-esophageal reflux disease with esophagiti s 06/25/2021 Gastroesophageal reflux disease 06/25/2021 documented as of this encounter (statuses as of 06/12/2022) [facility]2021 History of Past illness Narrative* Problem Noted Date Resolved Date Gastro-esophageal reflux disease with esophagiti s 06/25/2021 Gastroesophageal reflux disease 06/25/2021 documented as of this encounter (statuses as of 08/04/2022) [address]20-2021 History of Past illness Narrative* Problem Noted Date Resolved Date Gastro-esophageal reflux disease with esophagiti s 06/25/2021 Gastroesophageal reflux disease 06/25/2021 documented as of this encounter (statuses as of 08/06/2022) [address]20-2021 History of Past illness Narrative* Problem Noted Date Resolved Date Gastro-esophageal reflux disease with esophagiti s 06/25/2021 documented as of this encounter (statuses as of 01/29/2023) [address]20-2021 History of Past illness Narrative* Problem Noted Date Resolved Date Gastro-esophageal reflux disease with esophagiti s 06/25/2021 documented as of this encounter (statuses as of 02/06/2023) [address]20-2021 History of Past illness Narrative* Problem Noted Date Diagnosed Date Resolved Date Gastro-esophageal reflux dis ease with esophagitis 06/25/2021 documented as of this encounter (statuses as of 04/15/2023) [address]20-2021 History of Past illness Narrative* Problem Noted Date Diagnosed Date Resolved Date Gastro-esophageal reflux dis ease with esophagitis 06/25/2021 documented as of this encounter (statuses as of 08/07/2023) [address]20-2021 History of Past illness Narrative* Problem Noted Date Diagnosed Date Resolved Date Gastro-esophageal reflux dis ease with esophagitis 06/25/2021 documented as of this encounter (statuses as of 08/21/2023) [facility] Diagnosis Essential (primary) hypertension Unspecified essential hypertension Gastroesophageal reflux disease without esophagitis Esophageal reflux [facility] Diagnosis Essential (primary) hypertension Unspecified essential hypertension Gastroesophageal reflux disease without esophagitis Esophageal reflux [facility] Diagnosis Hypertension, essential- Primary Unspecified essential hypertension Mixed hyperlipidemia [facility] Diagnosis Screening mammogram for breast cancer- Primary documented [facility] this [facility] Diagnosis Essential (primary) hypertension Unspecified essential hypertension documented in this encounter [facility] note* Diagnosis Hypertension, essential- Primary Unspecified essential hypertension Mixed hyperlipidemia Primary osteoarthritis involving multiple joints GERD without esophagitis Esophageal reflux Statin intolerance Other drug allergy Screening for thyroid disorder documented in this encounter [facility] note* Diagnosis Essential (primary) hypertension Unspecified essential hypertension documented in this encounter [facility] note* Diagnosis Essential (primary) hypertension- Primary Unspecified essential hypertension Anemia, unspecified type Aortic valve stenosis, etiology of cardiac valve disease unspecified Heart murmur Undiagnosed cardiac murmurs Overweight with body mass index (BMI) of 27 to 27.9 in adult documented in this encounter [facility] for referral (narrative)* Diagnostic Procedure Only (Routine) - Pending Review Specialty Diagnoses / Procedures Referred By Kristian t Referred To Contact [facility] Diagnoses Screening mammogram for breast cancer Procedures BRANDEE SCREENING W AZUL SCREENING DIGITAL BREAST TOMOSYNTHESIS BI SCREENING MAMMOGRAPHY BI 2-VIEW BREAST INC Jah Morrison DO [address] [place] [address] [facility] [address] [place] [address] Referral ID Status Reason Start Date Expiration Date Visits Requested Visits Authorized [id number] Pending Review Auto-Generat ed Referral 08/06/2022 09/05/2023 1 1 [facility] Advance Directives No Advanced Directives Records FoundDocuments on File Type Date Recorded Patient Campus Coordinator Expl anation Advance Directive(s) 06/25/2021 7:15 AM [...] or prosecute any alcohol or drug abuse patient.[facility] the event this information is protected by the Federal Confidentiality of Alcohol and Drug Abuse Patient Records regulations: The Federal rules restrict any use of the information to criminally investigate or prosecute any alcohol or drug abuse patient.[facility] the event this information is protected by the Federal Confidentiality of Alcohol and Drug Abuse Patient Records regulations: The Federal rules restrict any use of the information to criminally investigate or prosecute any alcohol or drug abuse patient.[facility] the event this information is protected by the Federal Confidentiality of Alcohol and Drug Abuse Patient Records regulations: The Federal rules restrict any use of the information to criminally investigate or prosecute any alcohol or drug abuse patient.[facility] the event this information is protected by the Federal Confidentiality of Alcohol and Drug Abuse Patient Records regulations: The Federal rules restrict any use of the information to criminally investigate or prosecute any alcohol or drug abuse patient.[facility] the event this information is protected by the Federal Confidentiality of Alcohol and Drug Abuse Patient Records regulations: The Federal rules restrict any use of the information to criminally investigate or prosecute any alcohol or drug abuse patient.[facility] the event this information is protected by the Federal Confidentiality of Alcohol and Drug Abuse Patient Records regulations: The Federal rules restrict any use of the information to criminally investigate or prosecute any alcohol or drug abuse patient.[facility] [place] the event this information is protected by the Federal Confidentiality of Alcohol and Drug Abuse Patient Records regulations: The Federal rules restrict any use of the information to criminally investigate or prosecute any alcohol or drug abuse patient.[facility] [place] the event this information is protected by the Federal Confidentiality of Alcohol and Drug Abuse Patient Records regulations: The Federal rules restrict any use of the information to criminally investigate or prosecute any alcohol or drug abuse patient.[facility] [place] the event this information is protected by the Federal Confidentiality of Alcohol and Drug Abuse Patient Records regulations: The Federal rules restrict any use of the information to criminally investigate or prosecute any alcohol or drug abuse patient.[facility] [place] Reason for Visit (unrecogniz ed section and content) Reason Comments Patient Update Reason Comments Hypertension 2 week recheck. Disc uss times of blood pressure medications. Reason Comments Orders Reason Comments Hypertension 6 Month Exam Heartburn Reason Comments Appointment Reason Comments Wellness Yearly wellness Results Had recent blood wor k. Care Teams (unrecognized sec tion and content) [employer] Relationship Specialty Start Date End Date Jah Ryan DO [address] [place] [address] PCP - General Family Practice 06/04/21 Forestry Laborer Relationship Specialty Start Date End Date Jah Ryan DO [address] [place] [address] PCP - General Family Practice 06/04/21 Forestry Laborer Relationship Specialty Start Date End Date Jah Ryan DO [address] [place] [address] PCP - General Family Medicine 06/04/21 Forestry Laborer Relationship Specialty Start Date End Date Jah Ryan DO [address] [place] [address] PCP - General Family Medicine 06/04/21 Forestry Laborer Relationship Specialty Start Date End Date Jah Ryan DO [address] [place] [address] PCP - General Family Medicine 06/04/21 Forestry Laborer Relationship Specialty Start Date End Date Jah Ryan DO PCP - General Family Medicine 06/04/21 Forestry Laborer Relationship Specialty Start Date End Date Jah Ryan DO PCP - General Family Medicine 06/04/21 Forestry Laborer Relationship Specialty Start Date End Date Jah Ryan DO PCP - General Family Medicine 06/04/21 INFORMATION SOURCE (unrecogn ized section and content) DATE CREATED AUTHOR AUTHOR'S HELEN ATION 10/22/2023 [facility] FOR RECORDS PERTAINING TO PATIENTS WHO ARE [...] BE BASED ON THE PRIMARY CLINICAL RECORDS. [facility] [email or web address] [facility]. provides no warranty or guarantee of the accuracy or completeness of information in this document.
[2023-11-03 12:49] VITALS: BP 123/52; PULSE 76; RESP 16; O2SAT 100; BMI 27.3
[2023-11-03 13:04] VITALS: PULSE 69
[2023-11-03 13:18] LABS: CREATININE FINGERSTICK < 1.0 mg/dL (0.55-1.02); EGFR FINGERSTICK > 60.0000 mL/min (>60)
[2023-11-03 13:19] VITALS: PULSE 74
[2023-11-03] MEDS: Nitroglycerin SL (ED/IMG/CATH) 0.4 MG TABLET 0.400000000000000022 MG SL (13:19)
[2023-11-03 13:27] VITALS: BP 106/60; PULSE 79; RESP 16; O2SAT 97
[2023-11-03 13:33] VITALS: BP 110/66
--- NOTE | 2023-11-03 13:40 | CT_ITS ---
STUDY: CT CHEST WITH CONTRAST REASON FOR EXAM: Female, 67 years old. ABN STRESS TEST RADIATION DOSAGE (If Supplied By Facility): CTDIvol = ( 26.95 ) mGy, DLP = ( 1076.54 ) mGycm TECHNIQUE: Transaxial imaging was performed following intravenous administration of IV 75mL Isovue-370. Cardiac over read examination. Individualized dose optimization techniques were used for this CT. COMPARISON: No relevant priors. FINDINGS: CHEST The lungs are normal. There is no demonstrated pleural abnormality. There are calcifications of the coronary arteries. Normal mediastinum. Normal hilar regions. Normal unenhanced pulmonary arteries. There is atherosclerotic calcification of the aortic arch. Normal osseous structures. Small renal hernia. Fatty infiltration of the liver. CT/Limited Chest CT Cardiac Only IMPRESSION: Coronary artery calcification. Fatty infiltration of the liver. Electronically Signed: Real Ramesh MD at 15:10 EST ,
--- NOTE | 2023-11-23 16:56 | CCTA_ITS ---
CCTA w/Cont Coronary Arteries Date of Study:: 11/03/23 Abnormal stress test Coronary Calcium Scoring: High-resolution Computed Tomographic imaging of the chest was performed on [11/03/2023], with particular attention paid to the coronary arteries. Intravenous contrast agent was administered per protocol and images reconstructed and displayed. LEFT MAIN CORONARY ARTERY: Mild calcification with nonobstructive lesion noted [] LEFT ANTERIOR DESCENDING CORONARY ARTERY: No significant atherosclerotic plaquing noted in this vessel. [] LEFT CIRCUMFLEX CORONARY ARTERY: Nondominant vessel but with proximal eccentric calcification noted of approximately 50% and mid vessel mild calcification noted. Ramus intermedius is noted with no high-grade stenosis. [] RIGHT CORONARY ARTERY: Small vessel with mild diffuse disease noted. No high- grade stenosis present. CORONARY CALCIUM SCORE: Not done Conclusion: Coronary CT angio with mild to moderate calcification noted of the proximal circumflex artery with eccentric stenosis and mild disease noted in the other vessels. []
== END | disposition home or self-care (01) ==
LOC: CT 12:23
PROVIDERS: PCP Family Medicine; Referring Provider Nurse Practitioner Family; Visit Provider Nurse Practitioner Family
DX: R94.39 Abnormal result of other cardiovascular function study (principal); I35.0 Nonrheumatic aortic (valve) stenosis; R00.2 Palpitations
CPT/HCPCS: 75574; 76380; Q9967

== ENCOUNTER → 2024-04-14 | Outpatient (CLI) | payer MEDICARE, SELFPAY ==
--- NOTE | 2024-04-14 09:51 | ECHOD_ITS ---
Reason For Study: DYSPNEA/SOB, AORTIC STENOSIS Procedure This was a 2D Doppler, Color Flow transthoracic echocardiogram. Exam performed in department. Left Ventricle Normal size and thickness. The left ventricular ejection fraction is 65 %. Normal diastology for age. Right Ventricle Normal right ventricle. Atria The left and right atria are normal. Mitral Valve Trivial mitral valve insufficiency. Tricuspid Valve Trivial tricuspid valve insufficiency. Normal pulmonary artery pressure. Aortic Valve Mild diffuse aortic valve thickening. Mild aortic stenosis. Trivial aortic valve insufficiency. Pulmonic Valve The pulmonic valve is not well visualized. Great Vessels Normal sized aortic root. Pericardium/Pleural No pericardial effusion. Epicardial fat. MMode/2D Measurements & Calculations LVIDd: 3.9 cm IVSd: 0.99 cm LVOT diam: 2.0 cm LVIDs: 2.7 cm LVPWd: 0.95 cm LVOT area: 3.0 cm2 RVDd: 3.0 cm FS: 31.6 % Ao root diam: 2.8 cm LAV(MOD-bp): 23.2 ml LVAd ap4: 22.8 cm2 LAV(MOD-bp) Indexed: 14.3 ml/m2 LVLd ap4: 7.4 cm LAV(MOD-sp2): 21.8 ml EDV(MOD-sp4): 58.4 ml LAV(MOD-sp4): 24.7 ml EDV(sp4-el): 59.5 ml LVAs ap4: 13.0 cm2 LVLs ap4: 6.3 cm ESV(MOD-sp4): 23.1 ml ESV(sp4-el): 22.8 ml EF(MOD-sp4): 60.5 % EF(sp4-el): 61.6 % SV(MOD-sp4): 35.3 ml SV(sp4-el): 36.7 ml Aortic Valve Planimetry: 1.2 cm2 LA A4 area: 12.2 cm2 LA dimension(2D): 3.1 cm RA A4 area: 11.2 cm2 TAPSE: 2.1 cm Doppler Measurements & Calculations MV E max cuauhtemoc: 62.5 cm/sec Lat Peak E' Cuauhtemoc: 6.9 cm/sec Med Peak E' Cuauhtemoc: 7.4 cm/sec MV A max cuauhtemoc: 89.2 cm/sec E/E' lat: 9.1 E/E' med: 8.5 MV E/A: 0.70 Ao V2 max: 240.1 cm/sec LV V1 max: 114.8 cm/sec SV(LVOT): 89.2 ml Ao max P.1 mmHg LV V1 max P.3 mmHg Ao V2 mean: 165.2 cm/sec LV V1 mean P.5 mmHg Ao mean P.2 mmHg LV V1 mean: 74.0 cm/sec Ao V2 VTI: 64.3 cm LV V1 VTI: 29.5 cm AV (velocity ratio): 0.46 LEONA(I,D): 1.4 cm2 LEONA(V,D): 1.4 cm2 PA V2 max: 94.6 cm/sec TR max cuauhtemoc: 243.2 cm/sec TR max P.7 mmHg ECHO/Echo Complete Interpretation Summary The left ventricular ejection fraction is 65 %. Mild aortic stenosis. Ordering Physician: Cordell Echeverria Referring Physician: SARAH FRIEDMAN Performed By: Manasa Sotelo RDCS
--- NOTE | 2024-04-14 09:51 | CDU_ITS ---
Reason For Study: Dizziness Rt. Velocities/BP Lt. Velocities/BP Prox CCA 86.7/14.2 cm/sec. Prox CCA 73.2/21.6 cm/sec. Mid CCA 78.1/19.2 cm/sec. Mid CCA 79.3/25.3 cm/sec. Dist CCA 60.9/16.7 cm/sec. Dist CCA 70.7/22.8 cm/sec. Prox ICA 55.5/15.4 cm/sec. Prox ICA 48.7/22.3 cm/sec. Mid ICA 74.3/29.9 cm/sec. Mid ICA 125.9/40.3 cm/sec. Dist ICA 77.6/23.5 cm/sec. Dist ICA 150.6/32.0 cm/sec. Rt. ICA/CCA = 0.99. Lt. ICA/CCA = 1.89. Prox ECA 73.2/5.6 cm/sec. Prox ECA 81.8/5.6 cm/sec. Rt. Vert. 45.7/12.7 cm/sec. Lt. Vert. 56.3/17.6 cm/sec. Right Extracranial There is intimal thickening but no significant atherosclerotic plaque noted in the right common carotid artery. There is heterogeneous, irregular atherosclerotic plaque noted in the right internal carotid artery. There is intimal thickening but no significant atherosclerotic plaque noted in the right external carotid artery. Antegrade flow is noted in the right vertebral artery. Left Extracranial There is intimal thickening but no significant atherosclerotic plaque noted in the left common carotid artery. There is intimal thickening but no significant atherosclerotic plaque noted in the left internal carotid artery. The left internal carotid artery is very tortuous. There is heterogeneous, irregular atherosclerotic plaque noted in the left external carotid artery. Antegrade flow is noted in the left vertebral artery. Procedure Carotid Duplex [id number]. This is a Carotid Duplex examination using B-mode, color flow and specral Doppler. Exam performed in department. VL/Carotid Duplex Ultrasound Interpretation Summary Mild (<50%) stenosis right extracranial internal carotid. Moderate (50-69%) stenosis left extracranial internal carotid. Patent and antegrade vertebrals bilaterally. Ordering Physician: Cordell Echeverria Referring Physician: Cordell Echeverria MD Performed By: Kaykay Gamez RVT and Student
== END | disposition home or self-care (01) ==
LOC: CVS 09:44
PROVIDERS: PCP Family Medicine; Referring Provider Internal Medicine Cardiovascular Disease; Visit Provider Internal Medicine Cardiovascular Disease
DX: I35.0 Nonrheumatic aortic (valve) stenosis (principal); R42 Dizziness and giddiness; R00.2 Palpitations; R53.83 Other fatigue; I10 Essential (primary) hypertension
CPT/HCPCS: 93306; 93880

== ENCOUNTER → 2025-01-05 | Outpatient (CLI) | payer MEDICARE, SELFPAY ==
--- NOTE | 2025-01-05 12:44 | CDU_ITS ---
Reason For Study Reason For Study: Carotid bruit Rt. Velocities/BP Lt. Velocities/BP Prox CCA 106.0/12.6 cm/sec. Prox CCA 84.2/14.2 cm/sec. Mid CCA 62.6/13.5 cm/sec. Mid CCA 70.7/17.9 cm/sec. Dist CCA 69.5/14.7 cm/sec. Dist CCA 57.2/13.0 cm/sec. Prox ICA 45.0/15.7 cm/sec. Prox ICA 62.1/14.2 cm/sec. Mid ICA 51.6/19.5 cm/sec. Mid ICA 103.4/28.5 cm/sec. Dist ICA 69.5/20.3 cm/sec. Dist ICA 135.2/25.5 cm/sec. Rt. ICA/CCA = 1.1. Lt. ICA/CCA = 1.9. Prox ECA 72.4/5.3 cm/sec. Prox ECA 73.2/3.2 cm/sec. Rt. Vert. 50.1/14.9 cm/sec. Lt. Vert. 54.8/16.7 cm/sec. Right Extracranial There is intimal thickening but no significant atherosclerotic plaque noted in the right common carotid artery. There is heterogeneous, irregular atherosclerotic plaque noted in the right internal carotid artery. There is heterogeneous, irregular atherosclerotic plaque noted in the right external carotid artery. Antegrade flow is noted in the right vertebral artery. Left Extracranial There is intimal thickening but no significant atherosclerotic plaque noted in the left common carotid artery. There is intimal thickening but no significant atherosclerotic plaque noted in the left internal carotid artery. There is intimal thickening but no significant atherosclerotic plaque noted in the left external carotid artery. Antegrade flow is noted in the left vertebral artery. Procedure Carotid Duplex [id number]. This is a Carotid Duplex examination using B-mode, color flow and specral Doppler. Exam performed in department. VL/Carotid Duplex Ultrasound Interpretation Summary Mild (<50%) stenosis right extracranial internal carotid. Normal left extracranial internal carotid. Elevated velocity with no plaque vis ualized. Patent and antegrade vertebrals bilaterally. Ordering Physician: Cordell Echeverria Referring Physician: Anju Ryan DO Performed By: Lena Bejarano RVT
== END | disposition home or self-care (01) ==
LOC: CVS 12:42
PROVIDERS: PCP Family Medicine; Referring Provider Internal Medicine Cardiovascular Disease; Visit Provider Internal Medicine Cardiovascular Disease
DX: R09.89 Other specified symptoms and signs involving the circulatory and respiratory systems (principal); I77.9 Disorder of arteries and arterioles, unspecified
CPT/HCPCS: 93880

== ENCOUNTER → 2025-07-13 | Outpatient (CLI) | payer MEDICARE, SELFPAY ==
--- NOTE | 2025-07-13 12:28 | ECHOD_ITS ---
Reason For Study Reason For Study: AORTIC STENOSIS Procedure This was a 2D Doppler, Color Flow transthoracic echocardiogram. Exam performed in department. Left Ventricle Normal LV size. Normal left ventricular thickness. The left ventricular ejection fraction is 65 %. Normal diastology for age. Right Ventricle Normal right ventricle. Atria The left and right atria are normal. Mitral Valve Trivial mitral valve insufficiency. Tricuspid Valve Moderate-Severe (3+) tricuspid valve insufficiency. Normal pulmonary artery pressure. Aortic Valve Mild calcific aortic valve stenosis. Mean peak gradient 15 mmHg. Valve area 1.4 cm??. Trivial to mild aortic valve regurgitation. Pulmonic Valve The pulmonic valve is not well visualized. Great Vessels Normal sized aortic root. Pericardium/Pleural No pericardial effusion. MMode/2D Measurements & Calculations LVIDd: 4.1 cm IVSd: 0.89 cm LVOT diam: 2.0 cm LVIDs: 2.4 cm LVPWd: 0.83 cm LVOT area: 3.2 cm2 RVDd: 3.4 cm FS: 41.4 % LA dimension: 3.9 cm asc Aorta Diam: 2.7 cm LAV(MOD- bp): 33.9 ml LAV(MOD- bp) Indexed: 21.0 ml/m2 LAV(MOD- sp2): 33.6 ml LAV(MOD- sp4): 34.2 ml SV(MOD- sp4): 31.9 ml LVAd ap4: 20.0 cm2 LVAd ap2: 19.0 cm2 LVLd ap4: 6.6 cm LVLd ap2: 6.6 cm SI(MOD- sp4): 19.8 ml/m2 EDV(MOD-sp4): 50.6 ml EDV(MOD-sp2): 44.5 ml EDV(sp4-el): 51.3 ml EDV(sp2-el): 46.6 ml LVAs ap4: 11.3 cm2 LVAs ap2: 11.2 cm2 LVLs ap4: 5.9 cm LVLs ap2: 5.6 cm ESV(MOD-sp4): 18.7 ml ESV(MOD-sp2): 18.5 ml ESV(sp4-el): 18.6 ml ESV(sp2-el): 19.1 ml EF(MOD-sp4): 63.0 % EF(MOD-sp2): 58.4 % EF(sp4-el): 63.7 % SV(MOD-sp2): 26.0 ml SV(sp4-el): 32.7 ml Ao sinus diam: 2.8 cm SI(MOD-sp2): 16.1 ml/m2 Ao ST Junction: 2.0 cm LA dimension(2D): 3.5 cm LA A4 area: 14.3 cm2 TAPSE: 1.7 cm RA A4 area: 10.3 cm2 Time Measurements MV dec time: 0.15 sec Doppler Measurements & Calculations MV E max cuauhtemoc: 70.1 cm/sec Lat Peak E' Cuauhtemoc: 8.2 cm/sec Med Peak E' Cuauhtemoc: 9.1 cm/sec MV A max cuauhtemoc: 82.2 cm/sec E/E' lat: 8.5 E/E' med: 7.7 MV E/A: 0.85 MV dec slope: 470.6 cm/sec2 Ao V2 max: 245.4 cm/sec LV V1 max: 105.4 cm/sec Ao max P.1 mmHg LV V1 max P.4 mmHg Ao V2 mean: 182.8 cm/sec LV V1 mean P.9 mmHg Ao mean P.5 mmHg LV V1 mean: 82.7 cm/sec Ao V2 VTI: 58.3 cm LV V1 VTI: 24.3 cm AV (velocity ratio): 0.42 LEONA(I,D): 1.3 cm2 LEONA(V,D): 1.4 cm2 SV(LVOT): 76.7 ml PA V2 max: 87.6 cm/sec TR max cuauhtemoc: 207.2 cm/sec TR max P.5 mmHg ECHO/Echo Complete Interpretation Summary The left ventricular ejection fraction is 65 %. Mild calcific aortic valve stenosis. Mean peak gradient 15 mmHg. Valve area 1.4 cm??. Trivial to mild aortic valve regurgitation. Ordering Physician: Cordell Echeverria Referring Physician: Cordell Echeverria MD Performed By: Mariella Robertson [facility]
== END | disposition home or self-care (01) ==
LOC: CVS 12:25
PROVIDERS: PCP Family Medicine; Referring Provider Internal Medicine Cardiovascular Disease; Visit Provider Internal Medicine Cardiovascular Disease
DX: I35.0 Nonrheumatic aortic (valve) stenosis (principal)
CPT/HCPCS: 93306